=== PATIENT | male | born 1930 | race Caucasian/White ===

== ENCOUNTER 2018-03-19 12:57 | Inpatient (IN) ==
[2018-03-19 13:18] LABS: Basophils % 0.3 % (0.1-2.0); Eosinophils # 0.2 K/mm3 (0.0-0.4); Eosinophils % 3.5 % (0.1-12.0); Hematocrit 44.9 % (42.0-52.0); Hemoglobin 14.1 g/dL (14.1-18.0); Lymphocytes # 0.3 K/mm3 (0.7-4.5); Lymphocytes % 6.4 % (10-50); Mean Corpuscular HGB Conc 31.5 g/dL (31.8-35.4); Mean Corpuscular Hemoglobin 30.6 pg (27.0-31.2); Mean Corpuscular Volume 97.2 fl (80-94); Mean Platelet Volume 8.7 fl (7.4-10.4); Monocytes # 0.2 K/mm3 (0.1-1.0); Monocytes % 3.1 % (1.7-9.3); Neutrophils # 4.3 K/mm3 (1.8-7.8); Neutrophils % 86.8 % (37.0-80.0); Platelet Count 129 K/mm3 (142-424); Red Blood Count 4.62 M/mm3 (4.60-6.20); Red Cell Distribution Width 14.9 % (11.5-17.5); White Blood Count 4.9 K/mm3 (4.8-10.8)
[2018-03-19 13:24] LABS: INR 1.53 (0.9-1.1); Prothrombin Time 15.6 seconds (9.4-11.8)
[2018-03-19 13:34] LABS: Albumin Level 3.3 gm/dL (3.4-5.0); Albumin/Globulin Ratio 0.6 (1.1-1.8); Anion Gap 11.6 mEq/L (5-15); Bilirubin,Total 2.3 mg/dL (0.2-1.0); Calcium 9.1 mg/dL (8.5-10.1); Globulin 5.1 gm/dl (1.3-3.2); Potassium 3.6 mmoL/L (3.5-5.1); Total Protein,Serum 8.4 gm/dL (6.4-8.2)
[2018-03-19 13:52] LABS: Microscopic, Urine URINE MICROSCOPIC (MICROSCOPIC)
[2018-03-19 13:53] LABS: Eosinophils % 1 % (0-3); Lymphocytes % 3 % (10-50); Monocytes % 1 % (2-9); Neutrophils % 95 % (42-76); Total Cells Counted 100
[2018-03-19 13:54] LABS: RBC Morphology Normal
[2018-03-19 13:57] LABS: Appearance,Urine CLEAR (Clear); Bilirubin,Urine Negative (Negative); Blood, Urine TRACE-I (Negative); Color,Urine YELLOW (Yellow); Glucose,Urine (UA) Negative (Negative); Ketones,Urine Negative (Negative); Leukocyte Esterase,Urine Negative (Negative); Protein,Urine Negative (Negative); Specific Gravity, Urine 1.015 (1.005-1.030)
[2018-03-19 14:20] LABS: RBC,Urine Occasional #/hpf (0-3)
[2018-03-19 14:21] LABS: Bacteria,Urine Trace /lpf; Squamous Epithelial Cell,Urine Occasional #/hpf (0-5)
[2018-03-19 14:57] LABS: ABG Base Excess 2.7 mmol/L (-2.4-2.3); ABG Oxygen Saturation 97 % (90-100); ABG PCO2 49.8 mmhg (35.0-45.0); ABG PH 7.37 mmol/L (7.35-7.45); ABG PO2 97.9 mmhg (80-100); ABG TCO2 29.5 mmhg (23-27)
[2018-03-19 15:00] LABS: Allen's Test ACCEPTABLE
--- NOTE | 2018-03-19 16:27 | Emergency Department Note ---
ED Disposition Clinical Impression: Myalgia CHF (congestive heart failure) Qualifiers: Heart failure type: unspecified Heart failure chronicity: acute Qualified Code(s): I50.9 - Heart failure, unspecified Disposition: Admitted as Observation Condition on Discharge: Fair Instructions: Heart Failure Additional Instructions: DI for Myalgia Referrals: Provider,Referral, [Primary Care Provider] - - Critical Care Critical Care Time: Yes (45 min) Attestation: On 03/19/18, the high probability of a clinically significant, sudden or life threatening deterioration of the following system(s) required my full and direct attention, intervention and personal management. The time I documented below is in addition to time spent performing reported procedures but includes the following listed in this critical care notation. Vital system(s) involved:: Circulatory Failure, Respiratory Failure My critical care processes included: Assessment & monitoring of V/S, Initial and Re-exams, Data Review/Interpretation, Coordinating Care, Medication Orders and management, Documentation Medical Decision Making - Medical Records Medical records reviewed: Yes: I reviewed the patient's medical records. - [place] Inquiry Pt receiving controlled substance: No [place] was queried for this patient: No Vital Signs: 03/19/18 13:00 03/19/18 13:02 03/19/18 13:52 Temperature 98.7 F Temperature Source Oral Pulse Rate [Left Radial] 96 H 99 H Pulse Rate [Left] 92 H Respiratory Rate 26 H 18 Blood Pressure [Right Arm] 182/98 H 182/98 H 200/105 H Blood Pressure Mean [Right Arm] 126 126 136 Blood Pressure Source [Right Arm] Automatic Cuff Automatic Cuff Automatic Cuff Blood Pressure Position [Right Arm] Sitting Sitting Sitting 02 Sat by Pulse Oximetry 93 L 95 97 Oxygen Delivery Method Nasal Cannula Oxygen Flow Rate (LPM) 2 03/19/18 13:58 03/19/18 14:16 03/19/18 16:19 Temperature 97 F L Temperature Source Oral Pulse Rate [Left Radial] 96 H 98 H 95 H Pulse Rate [Left] Respiratory Rate 12 26 H 26 H Blood Pressure [Right Arm] 199/125 H 159/95 H 127/89 Blood Pressure Mean [Right Arm] 149 116 101 Blood Pressure Source [Right Arm] Automatic Cuff Automatic Cuff Blood Pressure Position [Right Arm] Sitting Sitting 02 Sat by Pulse Oximetry 96 94 L 94 L Oxygen Delivery Method Nasal Cannula Nasal Cannula Nasal Cannula Oxygen Flow Rate (LPM) 4 4 4 03/19/18 17:05 Temperature Temperature Source Pulse Rate [Left Radial] 81 Pulse Rate [Left] Respiratory Rate Blood Pressure [Right Arm] 139/97 H Blood Pressure Mean [Right Arm] 111 Blood Pressure Source [Right Arm] Automatic Cuff Blood Pressure Position [Right Arm] Sitting 02 Sat by Pulse Oximetry 97 Oxygen Delivery Method Oxygen Flow Rate (LPM) - Lab Data Lab results reviewed: Yes: I reviewed the patient's lab results. Lab Results 03/19/18 12:46: Urine Color Yellow, Urine Appearance Clear, Urine pH 7.0, Ur Specific [place] 1.015, Urine Protein Negative, Urine Glucose (UA) Negative, Urine Ketones Negative, Urine Blood Trace-i, Urine Nitrate Negative, Urine Bilirubin Negative, Urine Urobilinogen 2.0, Ur Leukocyte Esterase Negative, Urine RBC Occasional, Urine WBC None, Ur Squamous Epith Cells Occasional, Urine Bacteria Trace 03/19/18 13:06: WBC 4.9, RBC 4.62, Hgb 14.1, Hct 44.9, MCV 97.2 H, MCH 30.6, MCHC 31.5 L, RDW 14.9, Plt Count 129 L, MPV 8.7, Neut % (Auto) 86.8 H, Lymph % (Auto) 6.4 L, [place] % (Auto) 3.1, Eos % (Auto) 3.5, Baso % (Auto) 0.3, Neut # (Auto) 4.3, Lymph # (Auto) 0.3 L, [place] # (Auto) 0.2, Eos # (Auto) 0.2, Baso # (Auto) 0.0, Total Counted 100, Neutrophils % (Manual) 95 H, Lymphocytes % (Manual) 3 L, Monocytes % (Manual) 1 L, Eosinophils % (Manual) 1, Platelet Estimate Normal, RBC Morphology Normal 03/19/18 13:06: Sodium 144, Potassium 3.6, Chloride 105, Carbon Dioxide 31, Anion Gap 11.6, BUN 19 H, Creatinine 1.00, Estimated Creat Clear 57, Estimated GFR 71, Est GFR ( Amer) 86, Glucose 179 H, Calcium 9.1, Total Bilirubin 2.3 H, AST 170 H, ALT 98 H, Alkaline Phosphatase 168 H, Troponin I 0.03, Total Protein 8.4 H, Albumin 3.3 L, Globulin 5.1 H, Albumin/Globulin Ratio 0.6 L, Amylase 22 L 03/19/18 13:06: Lipase 91 03/19/18 13:06: PT 15.6 H, INR 1.53 H 03/19/18 13:06: B-Natriuretic Peptide 272 H 03/19/18 13:58: Lactate 2.8 H 03/19/18 14:25: Specimen Source L radial, O2 % 4 lpm, ABG pH 7.37, ABG pCO2 49.8 H, ABG pO2 97.9, ABG HCO3 28.0 H, ABG Total CO2 29.5 H, ABG O2 Saturation 97, ABG Base Excess 2.7 H, Freddy Test Acceptable Result diagrams: 03/19/18 13:06 03/19/18 13:06 Orders (Tests/Meds): ED MEDICATIONS Generic Name Dose Route Start Last Admin Trade Name Freq PRN Reason Stop Dose Admin Sodium Chloride 1,000 mls @ 100 mls/hr 03/19/18 14:30 03/19/18 16:12 Sod Chlor 0.9% 1000ml Bag IV 04/18/18 14:29 100 mls/hr .Q10H MARLEY Administration Levofloxacin/Dextrose 500 mg in 100 mls @ 100 mls/hr 03/19/18 16:00 03/19/18 16:13 Levaquin 500mg/100ml Premix IV 04/02/18 15:59 100 mls/hr Q24H MARLEY Administration Protocol Discontinued Medications Generic Name Dose Route Start Last Admin Trade Name Freq PRN Reason Stop Dose Admin Iopamidol 75 ml 03/19/18 16:47 03/19/18 16:48 [id number]; 75ml Vial IV 03/19/18 16:48 75 ml ONCE ONE Administration Protocol Sodium Chloride 10 ml 03/19/18 16:47 03/19/18 16:48 Rad-Saline Flush 10ml Syringe IV 03/19/18 16:48 10 ml ONCE ONE Administration ORDERS Category Date Time Status Urinalysis and Microscopic Stat Lab 03/19/18 12:46 Ordered Blood Culture Stat Micro 03/19/18 14:00 Ordered - CT Data CT Scan: Abdomen, Pelvis, Chest Time Received: 17:[address] Reviewed: Yes: I have reviewed the patient's CT results, I have viewed the radiologist's interpretation Findings Narrative: CHF with pleural effusion - Physician Consults Physician Consulted: Dr. Wylie Time: 17:58 Reason -: Admission, Pt condition Comment/Response: Admit Obs General Adult HPI - General Chief complaint: Shortness of Breath/Dyspnea Stated complaint: sob Time Seen by Provider: 03/19/18 13:45 Mode of Arrival: EMS Limitations: No Limitations Description of Symptoms (Recalled from ER Triage Doc. by RN): to ed per squad, reports pt was getting labs drawn from home health called due to shortness of breath, low o2 sat and cyanotic. o2 sats at scene 88% pt placed on 02 2 L up to 96%. pt c/o generalized abd pain +nausea, cpta IV oxygen - History of Present Illness HPI narrative: Poor historian Onset (ago): day(s) (today) Radiation: other (Unknown source of discomfort.Just moaning. Vomiting when he woke up this morning) Quality: dull Consistency: constant Relieving factors: none Exacerbating factors: none Associated symptoms: malaise, nausea/vomiting Treatments prior to arrival: none - Related Data Home Medications Medication Instructions Recorded Confirmed Alfuzosin HCl [Alfuzosin HCl ER] 10 mg PO DAILY 03/19/18 03/19/18 Carvedilol [Carvedilol 25mg Tab] 25 mg PO DAILY 03/19/18 03/19/18 Finasteride [Proscar 5mg Tablet] 5 mg PO DAILY 03/19/18 03/19/18 Furosemide [Lasix 40mg tab] 40 mg PO DAILY 03/19/18 03/19/18 Lisinopril [Lisinopril 20mg Tab] 20 mg PO DAILY 03/19/18 03/19/18 Omeprazole [Omeprazole 20mg Tab] 20 mg PO DAILY 03/19/18 03/19/18 Salsalate 750 mg PO BID 03/19/18 03/19/18 Warfarin Sodium [Coumadin 5mg 5 mg PO DAILY 03/19/18 03/19/18 tablet] Allergies Allergy/AdvReac Type Severity Reaction Status Date / Time No Known Allergies Allergy Verified 03/19/18 13:10 [facility] History I have reviewed the patient's past medical history: Yes Medical History: Reports:: Home Oxygen - Social History Alcohol Intake: never - Psychiatric History Expresses thoughts of harming self/others: None Suicide Plan Description: No Plan ROS Obtained: Yes All systems reviewed & no additional complaints - Constitutional Constitutional: Reports system reviewed and no additional complaints, except as docu - Cardiovascular Cardiovascular: Reports system reviewed and no additional complaints, except as docu, Denies chest pain - Respiratory Respiratory: No cough, No dyspnea - Gastrointestinal Gastrointestingal: Denies: diarrhea, nausea, vomiting - Genitourinary Male Genitourinary: Denies urinary frequency, Denies urinary hesitancy, Denies urinary urgency - Neurologic Neurologic: Reports system reviewed and no additional complaints, except as docu - Endocrine Endocrine: Reports system reviewed and no additional complaints, except as docu Physical Exam - General General appearance: alert, in distress (in mild to moderate distress) - Head Head exam: atraumatic, normocephalic, normal inspection - Eye Eye exam: Present: normal appearance, PERRL, EOMI - ENT ENT exam: Present: normal exam, normal oropharynx, mucous membranes moist, TM's normal bilaterally, normal external ear exam - Neck Neck exam: Present: normal inspection, full ROM, trachea midline. Absent: meningismus, lymphadenopathy - Chest Chest inspection: Present: normal inspection, symmetric chest wall rise. Absent: tenderness - Respiratory Respiratory exam: Present: normal lung sounds bilaterally. Absent: respiratory distress - Cardiovascular Cardiovascular exam: Present: regular rate, normal rhythm. Absent: JVD - Abdominal Exam Abdominal exam: Present: soft, tenderness (tender mildly), normal bowel sounds. Absent: distention, guarding, rebound, rigidity Abdominal tenderness: Present: mild - Neurological Exam Neurological exam: Present: alert, oriented X3 - Skin Skin exam: Present: warm, dry, intact, normal color
[2018-03-20 05:45] LABS: Basophils % 0.1 % (0.1-2.0); Eosinophils % 0.1 % (0.1-12.0); Hematocrit 37.2 % (42.0-52.0); Lymphocytes # 0.5 K/mm3 (0.7-4.5); Lymphocytes % 3.6 % (10-50); Mean Corpuscular HGB Conc 31.3 g/dL (31.8-35.4); Mean Corpuscular Hemoglobin 30.4 pg (27.0-31.2); Mean Corpuscular Volume 97.1 fl (80-94); Mean Platelet Volume 8.6 fl (7.4-10.4); Monocytes # 0.9 K/mm3 (0.1-1.0); Monocytes % 5.8 % (1.7-9.3); Neutrophils # 13.2 K/mm3 (1.8-7.8); Neutrophils % 90.4 % (37.0-80.0); Platelet Count 117 K/mm3 (142-424); Red Blood Count 3.83 M/mm3 (4.60-6.20); Red Cell Distribution Width 15.2 % (11.5-17.5); White Blood Count 14.6 K/mm3 (4.8-10.8)
[2018-03-20 05:52] LABS: Anion Gap 10.5 mEq/L (5-15); Calcium 8.9 mg/dL (8.5-10.1); Potassium 4.5 mmoL/L (3.5-5.1)
[2018-03-20 06:02] LABS: Hemoglobin 11.7 g/dL (14.1-18.0)
--- NOTE | 2018-03-20 08:42 | Pharmacy Consult Notes ---
[facility] VTE Monitoring - Patient Demographics Admission date: 03/19/18 Report Date: 03/20/18 Time: 08:41 Allergies/Adverse Reactions: Patient Allergies No Known Allergies Allergy (Verified 03/19/18 13:10) Height: 1.83 m Weight: 114.532 kg Patient Problems: Current Active Problems CHF (congestive heart failure) (Acute) Myalgia (Acute) - VTE Risk Labs: VTE Related Lab Results Hgb 11.7 g/dL (14.1-18.0) L D 03/20/18 04:30 Hct 37.2 % (42.0-52.0) L 03/20/18 04:30 Plt Count 117 K/mm3 (142-424) L 03/20/18 04:30 PT 15.6 seconds (9.4-11.8) H 03/19/18 13:06 INR 1.53 (0.9-1.1) H 03/19/18 13:06 BUN 23 mg/dL (7-18) H 03/20/18 04:30 Creatinine 1.21 mg/dL (0.70-1.30) D 03/20/18 04:30 Estimated Creat Clear 70 mL/min (50-200) 03/20/18 04:30 VTE Score: 4 VTE Risk Level: Low Risk - Prophylaxis VTE Prophylaxis Ordered?: Yes Types of VTE Prophylaxis: Pharmacological Pharmacologic Type: Warfarin - VTE Diagnosis Confirmed Treatment or plan recommended: Continue Current Treatment
--- NOTE | 2018-03-20 09:14 | History & Physical Report ---
*Admission Date: 03/19/18 <Kimberly Iglesias 03/20/18 09:23> *Chief complaint: Shortness of breath <Kimberly Iglesias 03/20/18 09:23> *History of present illness: Mr. Roblero is an 87-year-old male who is a patient with the [facility]. He is not a good historian and states he was eating yesterday when he became short of breath and vomited. He states his called the ambulance and he was brought to the emergency room. He is unsure exactly why he was hospitalized. He denies any pain or shortness of air at this time he states he thinks he might of had some diarrhea for the past few days. <Kimberly Iglesias 03/20/18 09:23> [facility] History Medical History: Reports:: Home Oxygen, Hyperlipidemia, Hypertension Denies:: Cancer, Diabetes Mellitus Type 1, Diabetes Mellitus Type 2, MRSA <Kimberly Iglesias 03/20/18 09:23> Amputation: No <Kimberly Iglesias 03/20/18 09:23> Fractures: No <Kimberly Iglesias 03/20/18 09:23> - *Social History Educational Level: Attended Grade School <Kimberly Iglesias 03/20/18 09:23> Smoking Status: Never smoker <Kimberly Iglesias 03/20/18 09:23> Alcohol Intake: never <Kimberly Iglesias 03/20/18 09:23> Occupational Status: retired <Kimberly Iglesias 03/20/18 09:23> Housing: house <Kimberly Iglesias 03/20/18 09:23> Household Members: spouse <Kimberly Iglesias 03/20/18 09:23> - Psychiatric History Expresses thoughts of harming self/others: None <Kimberly Iglesias 03/20/18 09:23> Suicide Plan Description: No Plan <Kimberly Iglesias 03/20/18 09:23> *Family Hx:: Hyperlipidemia, Hypertension <Kimberly Iglesias 03/20/18 09:23> Review of Systems - Constitutional Reports weakness <Kimberly Iglesias 03/20/18 09:23> - Eyes Denies blurry vision, Denies double vision <Kimberly Iglesias - 03/20/18 09:23> - ENT Denies nasal congestion, Denies sore throat <Kimberly Iglesias - 03/20/18 09:23> - *Cardiovascular Denies chest pain <Kimberly Iglesias - 03/20/18 09:23> - *Respiratory Denies cough, Denies shortness of breath <Kimberly Iglesias - 03/20/18 09:23> - *Gastrointestinal Reports loose stools, Reports nausea, Reports vomiting, Denies abdominal pain <Kimberly Iglesias 03/20/18 09:23> - *Genitourinary Denies difficulty urinating <Kimberly Iglesias 03/20/18 09:23> - *Musculoskeletal Denies joint pain <Kimberly Iglesias 03/20/18 09:23> - *Neurologic Reports weakness, Denies dizziness <Kimberly Iglesias 03/20/18 09:23> Meds Home Medications Medication Instructions Recorded Confirmed Type Alfuzosin HCl [Alfuzosin HCl ER] 10 mg PO DAILY 03/19/18 03/19/18 History Carvedilol [Carvedilol 25mg Tab] 12.5 mg PO BID 03/19/18 03/20/18 History Finasteride [Proscar 5mg Tablet] 5 mg PO DAILY 03/19/18 03/19/18 History Furosemide [Lasix 40mg tab] 40 mg PO DAILY 03/19/18 03/19/18 History Omeprazole [Omeprazole 20mg Tab] 20 mg PO DAILY 03/19/18 03/19/18 History Salsalate 750 mg PO BID 03/19/18 03/19/18 History Warfarin Sodium [Coumadin 5mg 5 mg PO DIRECTED 03/19/18 03/20/18 History tablet] Cholecalciferol (Vitamin D3) 1,000 unit PO DAILY 03/20/18 03/20/18 History [Vitamin D3 1,000 Unit Cap] Fluticasone Propionate [Flonase 1 spr NS DAILY 03/20/18 03/20/18 History 50mcg nasal spray 16gm] Lisinopril [Lisinopril 40mg Tablet] 40 mg PO DAILY 03/20/18 03/20/18 History <Vicky Wylie - 03/20/18 10:22> Allergies Allergy/AdvReac Type Severity Reaction Status Date / Time No Known Allergies Allergy Verified 03/19/18 13:10 <Sound,Vicky - 03/20/18 10:22> Exam Vital signs and Labs for Last 24 Hours: Temp Pulse Resp BP Pulse Ox 98.4 F 96 H 18 151/83 H 95 03/20/18 08:00 03/20/18 08:00 03/20/18 08:00 03/20/18 08:00 03/20/18 08:00 Laboratory Results - last 24 hr 03/19/18 12:46: Urine Color Yellow, Urine Appearance Clear, Urine pH 7.0, Ur Specific [place] 1.015, Urine Protein Negative, Urine Glucose (UA) Negative, Urine Ketones Negative, Urine Blood Trace-i, Urine Nitrate Negative, Urine Bilirubin Negative, Urine Urobilinogen 2.0, Ur Leukocyte Esterase Negative, Urine RBC Occasional, Urine WBC None, Ur Squamous Epith Cells Occasional, Urine Bacteria Trace 03/19/18 13:06: WBC 4.9, RBC 4.62, Hgb 14.1, Hct 44.9, MCV 97.2 H, MCH 30.6, MCHC 31.5 L, RDW 14.9, Plt Count 129 L, MPV 8.7, Neut % (Auto) 86.8 H, Lymph % (Auto) 6.4 L, [place] % (Auto) 3.1, Eos % (Auto) 3.5, Baso % (Auto) 0.3, Neut # (A uto) 4.3, Lymph # (Auto) 0.3 L, [place] # (Auto) 0.2, Eos # (Auto) 0.2, Baso # (Auto) 0.0, Total Counted 100, Neutrophils % (Manual) 95 H, Lymphocytes % (Manual) 3 L, Monocytes % (Manual) 1 L, Eosinophils % (Manual) 1, Platelet Estimate Normal, RBC Morphology Normal 03/19/18 13:06: Sodium 144, Potassium 3.6, Chloride 105, Carbon Dioxide 31, Anion Gap 11.6, BUN 19 H, Creatinine 1.00, Estimated Creat Clear 57, Estimated GFR 71, Est GFR ( Amer) 86, Glucose 179 H, Calcium 9.1, Total Bilirubin 2.3 H, AST 170 H, ALT 98 H, Alkaline Phosphatase 168 H, Troponin I 0.03, Total Protein 8.4 H, Albumin 3.3 L, Globulin 5.1 H, Albumin/Globulin Ratio 0.6 L, Amylase 22 L 03/19/18 13:06: Lipase 91 03/19/18 13:06: PT 15.6 H, INR 1.53 H 03/19/18 13:06: B-Natriuretic Peptide 272 H 03/19/18 13:58: Lactate 2.8 H 03/19/18 14:25: Specimen Source L radial, O2 % 4 lpm, ABG pH 7.37, ABG pCO2 49.8 H, ABG pO2 97.9, ABG HCO3 28.0 H, ABG Total CO2 29.5 H, ABG O2 Saturation 97, ABG Base Excess 2.7 H, Freddy Test Acceptable 03/19/18 19:04: Lactate 2.4 H 03/19/18 22:20: Troponin I 0.06 03/19/18 22:20: Lactate 2.0 03/20/18 04:30: Troponin I 0.05 03/20/18 04:30: WBC 14.6 H D, RBC 3.83 L, Hgb 11.7 L D, Hct 37.2 L, MCV 97.1 H, MCH 30.4, MCHC 31.3 L, RDW 15.2, Plt Count 117 L, MPV 8.6, Neut % (Auto) 90.4 H, Lymph % (Auto) 3.6 L, [place] % (Auto) 5.8, Eos % (Auto) 0.1, Baso % (Auto) 0.1, Neut # (Auto) 13.2 H, Lymph # (Auto) 0.5 L, [place] # (Auto) 0.9, Eos # (Auto) 0.0, Baso # (Auto) 0.0 03/20/18 04:30: Sodium 143, Potassium 4.5 D, Chloride 106, Carbon Dioxide 31, Anion Gap 10.5, BUN 23 H, Creatinine 1.21 D, Estimated Creat Clear 70, Estimated GFR 57 L, Est GFR ( Amer) 69, Glucose 110 H D, Calcium 8.9 <Sound,Vicky - 03/20/18 10:22> Temp Pulse Resp BP Pulse Ox 98.4 F 96 H 18 151/83 H 95 03/20/18 08:00 03/20/18 08:00 03/20/18 08:00 03/20/18 08:00 03/20/18 08:00 Laboratory Results - last 24 hr 03/19/18 12:46: Urine Color Yellow, Urine Appearance Clear, Urine pH 7.0, Ur Specific [place] 1.015, Urine Protein Negative, Urine Glucose (UA) Negative, Urine Ketones Negative, Urine Blood Trace-i, Urine Nitrate Negative, Urine Bilirubin Negative, Urine Urobilinogen 2.0, Ur Leukocyte Esterase Negative, Urine RBC Occasional, Urine WBC None, Ur Squamous Epith Cells Occasional, Urine Bacteria Trace 03/19/18 13:06: WBC 4.9, RBC 4.62, Hgb 14.1, Hct 44.9, MCV 97.2 H, MCH 30.6, MCHC 31.5 L, RDW 14.9, Plt Count 129 L, MPV 8.7, Neut % (Auto) 86.8 H, Lymph % (Auto) 6.4 L, [place] % (Auto) 3.1, Eos % (Auto) 3.5, Baso % (Auto) 0.3, Neut # (Auto) 4.3, Lymph # (Auto) 0.3 L, [place] # (Auto) 0.2, Eos # (Auto) 0.2, Baso # (Auto) 0.0, Total Counted 100, Neutrophils % (Manual) 95 H, Lymphocytes % (Manual) 3 L, Monocytes % (Manual) 1 L, Eosinophils % (Manual) 1, Platelet Estimate Normal, RBC Morphology Normal 03/19/18 13:06: Sodium 144, Potassium 3.6, Chloride 105, Carbon Dioxide 31, Anion Gap 11.6, BUN 19 H, Creatinine 1.00, Estimated Creat Clear 57, Estimated GFR 71, Est GFR ( Amer) 86, Glucose 179 H, Calcium 9.1, Total Bilirubin 2.3 H, AST 170 H, ALT 98 H, Alkaline Phosphatase 168 H, Troponin I 0.03, Total Protein 8.4 H, Albumin 3.3 L, Globulin 5.1 H, Albumin/Globulin Ratio 0.6 L, Amylase 22 L 03/19/18 13:06: Lipase 91 03/19/18 13:06: PT 15.6 H, INR 1.53 H 03/19/18 13:06: B-Natriuretic Peptide 272 H 03/19/18 13:58: Lactate 2.8 H 03/19/18 14:25: Specimen Source L radial, O2 % 4 lpm, ABG pH 7.37, ABG pCO2 49.8 H, ABG pO2 97.9, ABG HCO3 28.0 H, ABG Total CO2 29.5 H, ABG O2 Saturation 97, ABG Base Excess 2.7 H, Freddy Test Acceptable 03/19/18 19:04: Lactate 2.4 H 03/19/18 22:20: Troponin I 0.06 03/19/18 22:20: Lactate 2.0 03/20/18 04:30: Troponin I 0.05 03/20/18 04:30: WBC 14.6 H D, RBC 3.83 L, Hgb 11.7 L D, Hct 37.2 L, MCV 97.1 H, MCH 30.4, MCHC 31.3 L, RDW 15.2, Plt Count 117 L, MPV 8.6, Neut % (Auto) 90.4 H, Lymph % (Auto) 3.6 L, [place] % (Auto) 5.8, Eos % (Auto) 0.1, Baso % (Auto) 0.1, Neut # (Auto) 13.2 H, Lymph # (Auto) 0.5 L, [place] # (Auto) 0.9, Eos # (Auto) 0.0, Baso # (Auto) 0.0 03/20/18 04:30: Sodium 143, Potassium 4.5 D, Chloride 106, Carbon Dioxide 31, Anion Gap 10.5, BUN 23 H, Creatinine 1.21 D, Estimated Creat Clear 70, Estimated GFR 57 L, Est GFR ( Amer) 69, Glucose 110 H D, Calcium 8.9 <Kimberly Iglesias - 03/20/18 09:23> I & O for Last 24 hours: Intake & Output 03/17/18 03/18/18 03/19/18 03/20/18 11:59 11:59 11:59 11:59 Intake Total 551 / 551 Output Total 1500 / 1500 Balance -949 / -949 Weight 252 lb 8 oz <Vicky Wylie - 03/20/18 10:22> Intake & Output 03/17/18 03/18/18 03/19/18 03/20/18 11:59 11:59 11:59 11:59 Intake Total 551 / 551 Output Total 1500 / 1500 Balance -949 / -949 Weight 252 [facility] 8 [facility] 09[facility]23> - Constitutional no acute distress [facility] 09:23> - *Routine HEENT Exam Head: Present: normocephalic <[facility] 03/20/18 10:22> Present: normocephalic <[facility] 03/20/18 09:23> Eye: Present: EOMI, PERRL <[facility] 03/20/18 10:22> Present: EOMI, PERRL <[facility] 03/20/18 09:23> ENT: Present: mucous membranes dry [facility] 03/20/18 10:22> Present: mucous membranes dry <[facility] 03/20/18 09:23> - *Routine Neck Exam Present: supple <[facility] 03/20/18 10:22> Present: supple. Absent: lymphadenopathy <[facility] 03/20/18 09:23> - *Routine Respiratory Exam Present: decreased breath sounds, diminished air movement. Absent: accessory muscle use <[facility] 03/20/18 10:22> Present: diminished air movement <[facility] 03/20/18 09:23> - *Routine Cardiovascular Exam Present: RRR <[facility] 03/20/18 10:22> Present: RRR, murmur <[facility] 03/20/18 09:23> - *Routine Abdominal Exam Present: soft, normoactive bowel sounds <[facility] 03/20/18 10:22> Present: soft, normoactive bowel sounds. Absent: tenderness <[facility] 03/20/18 09:23> - *Routine Extremities Exam Present: edema <[facility] 03/20/18 10:22> Present: edema (2+ bilateral LE's) <[facility] 03/20/18 09:23> - *Routine Skin Exam Present: intact, dry <[facility] 03/20/18 10:22> Present: warm. Absent: rash <Kimberly Iglesias 03/20/18 09:23> - *Routine Neurological Exam Present: alert. Absent: oriented X3 <Vicky Wylie 03/20/18 10:22> Awake, patient is not oriented and is a poor historian <Kimberly Iglesias 03/20/18 09:23> - Routine Psychiatric Exam Present: normal affect <Dejan,Vicky 03/20/18 10:22> H&P: Result - Impressions CXR - CHF with pulmonary edema Abd CT 1. Slight increased density of the gallbladder which could be due to some stones or sludge with questionable gallbladder wall thickening. Ultrasound may be of further value. 2. Small amount fluid in the left paracolic gutter and left lower quadrant nonspecific. 3. Colonic diverticulosis Chest CT 1. Small bilateral effusions with cardiomegaly and interstitial and alveolar edema consistent with CHF. Possible infiltrate in the right lung base. 2. Mediastinal adenopathy Repeat CXR Improvement in CHF with some residual airspace disease in the right lower lobe <Kimberly Iglesias 03/20/18 09:23> Assessment and Plan (1) CHF (congestive heart failure) Current visit: Yes Status: Acute Qualifiers: Heart failure type: unspecified Heart failure chronicity: acute Qualified Code(s): I50.9 - Heart failure, unspecified Category: Medical Code(s): I50.9 - Heart failure, unspecified (2) Leukocytosis Current visit: Yes Status: Acute Category: Medical Code(s): D72.829 - Elevated white blood cell count, unspecified (3) Subtherapeutic international normalized ratio (INR) Current visit: Yes Status: Acute Category: Medical Code(s): R79.1 - Abnormal coagulation profile (4) Elevated lactic acid level Current visit: Yes Status: Acute Category: Medical Code(s): R79.89 - Other specified abnormal findings of blood chemistry (5) Vomiting and diarrhea Current visit: Yes Status: Acute Category: Medical Code(s): R11.10 - Vomiting, unspecified; R19.7 - Diarrhea, unspecified (6) Abnormal abdominal CT scan Current visit: Yes Status: Acute Category: Medical Code(s): R93.5 - Abnormal findings on diagnostic imaging of other abdominal regions, including retroperitoneum <Rufus Iglesiasa - 03/20/18 09:11> (1) Sepsis Current visit: Yes Status: Acute Category: Medical Code(s): A41.9 - Sepsis, unspecified organism 2/2 Right lower lobe pneumonia with elevated LA levels and WBC count. (2) Right lower lobe pneumonia Current visit: Yes Status: Acute Qualifiers: Pneumonia type: due to unspecified organism Qualified Code(s): J18.1 - Lobar pneumonia, unspecified organism Category: Medical Code(s): J18.1 - Lobar pneumonia, unspecified organism Will start on doxycycline and neb tx (3) CHF (congestive heart failure) Current visit: Yes Status: Acute Qualifiers: Heart failure type: unspecified Heart failure chronicity: acute Qualified Code(s): I50.9 - Heart failure, unspecified Category: Medical Code(s): I50.9 - Heart failure, unspecified (4) Subtherapeutic international normalized ratio (INR) Current visit: Yes Status: Acute Category: Medical Code(s): R79.1 - Abnormal coagulation profile (5) Vomiting and diarrhea Current visit: Yes Status: Acute Category: Medical Code(s): R11.10 - Vomiting, unspecified; R19.7 - Diarrhea, unspecified (6) Abnormal abdominal CT scan Current visit: Yes Status: Acute Category: Medical Code(s): R93.5 - Abnormal findings on diagnostic imaging of other abdominal regions, including retroperitoneum will get US of RUQ (7) Acute respiratory failure with hypoxia Current visit: Yes Status: Acute Category: Medical Code(s): J96.01 - Acute respiratory failure with hypoxia on supplemental oxygen <Vicky Wylie - 03/20/18 10:22> - Assessment and plan all Dx Assessment and Plan for all problems:: Will get ABG, PT/INR, RUQ US, Blood Cx. Start on doxycycline. <Vicky Wylie - 03/20/18 10:22> Patient has diuresed and CHF has improved on chest x-ray. We will try to obtain medical records from the [place] as patient is a poor historian. Will get a right upper quadrant ultrasound today. <Kimberly Iglesias - 03/20/18 09:23>
[2018-03-20 12:38] LABS: Lymphocytes % 2 % (10-50); Monocytes % 4 % (2-9); Neutrophils % 89 % (42-76); Total Cells Counted 100
[2018-03-21 06:33] LABS: ABG Base Excess 5.3 mmol/L (-2.4-2.3); ABG Oxygen Saturation 98 % (90-100); ABG PH 7.41 mmol/L (7.35-7.45); ABG PO2 106.8 mmhg (80-100); ABG TCO2 31.5 mmhg (23-27)
[2018-03-21 06:56] LABS: Allen's Test Acceptable; Oxygen 28% %
[2018-03-21 07:22] LABS: Basophils % 0.2 % (0.1-2.0); Eosinophils # 0.1 K/mm3 (0.0-0.4); Eosinophils % 1.1 % (0.1-12.0); Hematocrit 33.6 % (42.0-52.0); Hemoglobin 11.1 g/dL (14.1-18.0); Lymphocytes # 0.8 K/mm3 (0.7-4.5); Lymphocytes % 8.6 % (10-50); Mean Corpuscular HGB Conc 32.9 g/dL (31.8-35.4); Mean Corpuscular Volume 97.1 fl (80-94); Mean Platelet Volume 9.4 fl (7.4-10.4); Monocytes # 0.6 K/mm3 (0.1-1.0); Monocytes % 6.3 % (1.7-9.3); Neutrophils # 7.4 K/mm3 (1.8-7.8); Neutrophils % 83.8 % (37.0-80.0); Platelet Count 91 K/mm3 (142-424); Red Blood Count 3.45 M/mm3 (4.60-6.20); Red Cell Distribution Width 15.2 % (11.5-17.5); White Blood Count 8.9 K/mm3 (4.8-10.8)
[2018-03-21 07:28] LABS: INR 1.91 (0.9-1.1); Prothrombin Time 19.3 seconds (9.4-11.8)
--- NOTE | 2018-03-21 09:13 | Progress Note ---
<Kimberly Iglesias - Last Filed: 03/21/18 09:10> Internal Medicine - PN: Subj *Date: 03/21/18 *Time: 09:10 Interval history: Patient states he is feeling well today. He denies any pain. He is pleasantly confused. He is tolerating his diet. Exam Vital signs and Labs for Last 24 Hours: Temp Pulse Resp BP Pulse Ox 97.9 F 66 22 142/71 H 97 03/21/18 08:00 03/21/18 08:00 03/21/18 04:00 03/21/18 08:00 03/21/18 08:00 Laboratory Results - last 24 hr 03/20/18 04:30: Total Counted 100, Neutrophils % (Manual) 89 H, Band Neutrophils % 3.0, Lymphocytes % (Manual) 2 L, Atypical Lymphs % 2.0, Monocytes % (Manual) 4, Platelet Estimate Slight decrease, RBC Morphology Not Reportable 03/21/18 06:00: Specimen Source Right radial, O2 % 28%, ABG pH 7.41, ABG pCO2 49.0 H, ABG pO2 106.8 H, ABG HCO3 30.0 H, ABG Total CO2 31.5 H, ABG O2 Saturation 98, ABG Base Excess 5.3 H, Freddy Test Acceptable 03/21/18 06:30: PT 19.3 H, INR 1.91 H 03/21/18 06:30: WBC 8.9 D, RBC 3.45 L, Hgb 11.1 L, Hct 33.6 L, MCV 97.1 H, MCH 32.0 H, MCHC 32.9, RDW 15.2, Plt Count 91 L, MPV 9.4, Neut % (Auto) 83.8 H, Lymph % (Auto) 8.6 L, [place] % (Auto) 6.3, Eos % (Auto) 1.1, Baso % (Auto) 0.2, Neut # (Auto) 7.4, Lymph # (Auto) 0.8, [place] # (Auto) 0.6, Eos # (Auto) 0.1, Baso # (Auto) 0.0 I & O for Last 24 hours: Intake & Output 03/18/18 03/19/18 03/20/18 03/21/18 11:59 11:59 11:59 11:59 Intake Total 551 / 551 1881 / 1881 Output Total 1500 / 1500 1000 / 1000 Balance -949 / -949 881 / 881 Weight 252 lb 8 oz 155 lb 4 oz Microbiology Reports for the Last 24 Hours: Microbiology 03/19/18 14:00 Blood Blood Culture - Preliminary - Constitutional no acute distress - *Routine Respiratory Exam Present: crackles (faint bibasilar), diminished air movement - *Routine Cardiovascular Exam Present: RRR - *Routine Abdominal Exam Present: soft, normoactive bowel sounds. Absent: tenderness - *Routine Extremities Exam Present: edema (bilaterl LE edema). Absent: cyanosis, clubbing Assessment and Plan (1) Sepsis Current visit: Yes Status: Acute Category: Medical Code(s): A41.9 - Sepsis, unspecified organism (2) Right lower lobe pneumonia Current visit: Yes Status: Acute Qualifiers: Pneumonia type: due to unspecified organism Qualified Code(s): J18.1 - Lobar pneumonia, unspecified organism Category: Medical Code(s): J18.1 - Lobar pneumonia, unspecified organism (3) CHF (congestive heart failure) Current visit: Yes Status: Acute Qualifiers: Heart failure type: unspecified Heart failure chronicity: acute Qualified Code(s): I50.9 - Heart failure, unspecified Category: Medical Code(s): I50.9 - Heart failure, unspecified (4) Subtherapeutic international normalized ratio (INR) Current visit: Yes Status: Acute Category: Medical Code(s): R79.1 - Abnormal coagulation profile (5) Vomiting and diarrhea Current visit: Yes Status: Acute Category: Medical Code(s): R11.10 - Vomiting, unspecified; R19.7 - Diarrhea, unspecified (6) Abnormal abdominal CT scan Current visit: Yes Status: Acute Category: Medical Code(s): R93.5 - Abnormal findings on diagnostic imaging of other abdominal regions, including retroperitoneum (7) Acute respiratory failure with hypoxia Current visit: Yes Status: Acute Category: Medical Code(s): J96.01 - Acute respiratory failure with hypoxia (8) Positive blood culture Current visit: Yes Status: Acute Category: Medical Code(s): R78.81 - Bacteremia - Assessment and plan all Dx Assessment and Plan for all problems:: Lactic acid is now normal. Patient's white blood cell count has improved. He was started on Zosyn and Levaquin d/t his positive blood cultures. <Vicky Wylie - Last Filed: 03/21/18 10:53> Exam Vital signs and Labs for Last 24 Hours: Temp Pulse Resp BP Pulse Ox 97.9 F 66 22 142/71 H 97 03/21/18 08:00 03/21/18 08:00 03/21/18 04:00 03/21/18 08:00 03/21/18 09:39 Laboratory Results - last 24 hr 03/20/18 04:30: Total Counted 100, Neutrophils % (Manual) 89 H, Band Neutrophils % 3.0, Lymphocytes % (Manual) 2 L, Atypical Lymphs % 2.0, Monocytes % (Manual) 4, Platelet Estimate Slight decrease, RBC Morphology Not Reportable 03/21/18 06:00: Specimen Source Right radial, O2 % 28%, ABG pH 7.41, ABG pCO2 49.0 H, ABG pO2 106.8 H, ABG HCO3 30.0 H, ABG Total CO2 31.5 H, ABG O2 Satur ation 98, ABG Base Excess 5.3 H, Freddy Test Acceptable 03/21/18 06:30: PT 19.3 H, INR 1.91 H 03/21/18 06:30: WBC 8.9 D, RBC 3.45 L, Hgb 11.1 L, Hct 33.6 L, MCV 97.1 H, MCH 32.0 H, MCHC 32.9, RDW 15.2, Plt Count 91 L, MPV 9.4, Neut % (Auto) 83.8 H, Lymph % (Auto) 8.6 L, [place] % (Auto) 6.3, Eos % (Auto) 1.1, Baso % (Auto) 0.2, Neut # (Auto) 7.4, Lymph # (Auto) 0.8, [place] # (Auto) 0.6, Eos # (Auto) 0.1, Baso # (Auto) 0.0 I & O for Last 24 hours: Intake & Output 03/18/18 03/19/18 03/20/18 03/21/18 11:59 11:59 11:59 11:59 Intake Total 551 / 551 1881 / 1881 Output Total 1500 / 1500 1000 / 1000 Balance -949 / -949 881 / 881 Weight 252 lb 8 oz 155 lb 4 oz Microbiology Reports for the Last 24 Hours: Microbiology 03/19/18 14:00 Blood Blood Culture - Preliminary Gram Negative Rods Assessment and Plan (1) Sepsis Current visit: Yes Status: Acute Category: Medical Code(s): A41.9 - Sepsis, unspecified organism (2) Right lower lobe pneumonia Current visit: Yes Status: Acute Qualifiers: Pneumonia type: due to unspecified organism Qualified Code(s): J18.1 - Lobar pneumonia, unspecified organism Category: Medical Code(s): J18.1 - Lobar pneumonia, unspecified organism (3) CHF (congestive heart failure) Current visit: Yes Status: Acute Qualifiers: Heart failure type: unspecified Heart failure chronicity: acute Qualified Code(s): I50.9 - Heart failure, unspecified Category: Medical Code(s): I50.9 - Heart failure, unspecified (4) Subtherapeutic international normalized ratio (INR) Current visit: Yes Status: Acute Category: Medical Code(s): R79.1 - Abnormal coagulation profile (5) Vomiting and diarrhea Current visit: Yes Status: Acute Category: Medical Code(s): R11.10 - Vomiting, unspecified; R19.7 - Diarrhea, unspecified (6) Abnormal abdominal CT scan Current visit: Yes Status: Acute Category: Medical Code(s): R93.5 - Abnormal findings on diagnostic imaging of other abdominal regions, including retroperitoneum (7) Acute respiratory failure with hypoxia Current visit: Yes Status: Acute Category: Medical Code(s): J96.01 - Acute respiratory failure with hypoxia (8) Positive blood culture Current visit: Yes Status: Acute Category: Medical Code(s): R78.81 - Bacteremia - Assessment and plan all Dx Assessment and Plan for all problems:: We will continue Zosyn and Levaquin for now. Once sensitivities back, will switch to something p.o. we will try to wean off oxygen today
[2018-03-22 07:52] LABS: Basophils % 0.2 % (0.1-2.0); Eosinophils # 0.3 K/mm3 (0.0-0.4); Hematocrit 35.5 % (42.0-52.0); Hemoglobin 11.2 g/dL (14.1-18.0); Lymphocytes # 0.8 K/mm3 (0.7-4.5); Lymphocytes % 11.6 % (10-50); Mean Corpuscular HGB Conc 31.5 g/dL (31.8-35.4); Mean Corpuscular Hemoglobin 30.6 pg (27.0-31.2); Mean Corpuscular Volume 97.1 fl (80-94); Mean Platelet Volume 9.3 fl (7.4-10.4); Monocytes # 0.4 K/mm3 (0.1-1.0); Monocytes % 5.9 % (1.7-9.3); Neutrophils # 5.1 K/mm3 (1.8-7.8); Neutrophils % 77.4 % (37.0-80.0); Platelet Count 86 K/mm3 (142-424); Red Blood Count 3.65 M/mm3 (4.60-6.20); Red Cell Distribution Width 15.1 % (11.5-17.5); White Blood Count 6.6 K/mm3 (4.8-10.8)
--- NOTE | 2018-03-22 10:26 | Progress Note ---
Internal Medicine - PN: Subj *Date: 03/22/18 *Time: 10:15 Interval history: Patient doing well and is breathing on room air. Exam Vital signs and Labs for Last 24 Hours: Temp Pulse Resp BP Pulse Ox 97.7 F 75 20 160/85 H 91 L 03/22/18 07:58 03/22/18 07:58 03/22/18 07:58 03/22/18 07:58 03/22/18 09:07 Laboratory Results - last 24 hr 03/22/18 07:00: WBC 6.6 D, RBC 3.65 L, Hgb 11.2 L, Hct 35.5 L, MCV 97.1 H, MCH 30.6, MCHC 31.5 L, RDW 15.1, Plt Count 86 L, MPV 9.3, Neut % (Auto) 77.4, Lymph % (Auto) 11.6, [place] % (Auto) 5.9, Eos % (Auto) 5.0, Baso % (Auto) 0.2, Neut # (Auto) 5.1, Lymph # (Auto) 0.8, [place] # (Auto) 0.4, Eos # (Auto) 0.3, Baso # (Auto) 0.0 I & O for Last 24 hours: Intake & Output 03/19/18 03/20/18 03/21/18 03/22/18 11:59 11:59 11:59 11:59 Intake Total 551 / 551 2031 / 2031 3018 / 3018 Output Total 1500 / 1500 1000 / 1000 1800 / 1800 Balance -949 / -949 1031 / 1031 1218 / 1218 Weight 252 lb 8 oz 155 lb 4 oz 256 lb 8 oz Microbiology Reports for the Last 24 Hours: Microbiology 03/19/18 14:00 Blood Blood Culture - Final Escherichia coli 03/19/18 14:00 Blood Blood Culture - Preliminary - *Routine HEENT Exam Head: Present: normocephalic Eye: Present: EOMI ENT: Present: mucous membranes moist - *Routine Neck Exam Present: supple - *Routine Respiratory Exam Present: CTA bilaterally - *Routine Cardiovascular Exam Present: RRR - *Routine Abdominal Exam Present: soft, normoactive bowel sounds. Absent: tenderness - *Routine Extremities Exam Absent: edema - *Routine Skin Exam Present: intact - *Routine Neurological Exam Present: alert, oriented X3 - Routine Psychiatric Exam Present: normal affect Assessment and Plan (1) Sepsis Current visit: Yes Status: Acute Category: Medical Code(s): A41.9 - Sepsis, unspecified organism Sepsis secondary to E. coli resistant to Levaquin but sensitive to Zosyn. (2) Right lower lobe pneumonia Current visit: Yes Status: Acute Qualifiers: Pneumonia type: due to unspecified organism Qualified Code(s): J18.1 - Lobar pneumonia, unspecified organism Category: Medical Code(s): J18.1 - Lobar pneumonia, unspecified organism (3) CHF (congestive heart failure) Current visit: Yes Status: Acute Qualifiers: Heart failure type: unspecified Heart failure chronicity: acute Qualified Code(s): I50.9 - Heart failure, unspecified Category: Medical Code(s): I50.9 - Heart failure, unspecified (4) Subtherapeutic international normalized ratio (INR) Current visit: Yes Status: Acute Category: Medical Code(s): R79.1 - Abnormal coagulation profile (5) Vomiting and diarrhea Current visit: Yes Status: Acute Category: Medical Code(s): R11.10 - Vomiting, unspecified; R19.7 - Diarrhea, unspecified (6) Abnormal abdominal CT scan Current visit: Yes Status: Acute Category: Medical Code(s): R93.5 - Abnormal findings on diagnostic imaging of other abdominal regions, including retroperitoneum (7) Acute respiratory failure with hypoxia Current visit: Yes Status: Acute Category: Medical Code(s): J96.01 - Acute respiratory failure with hypoxia (8) Positive blood culture Current visit: Yes Status: Acute Category: Medical Code(s): R78.81 - Bacteremia - Assessment and plan all Dx Assessment and Plan for all problems:: Will place PICC line as he will need outpatient antibiotics,zosyn for a total of 14 days
[2018-03-23 07:17] LABS: Basophils # 0.1 K/mm3 (0-0.2); Basophils % 0.8 % (0.1-2.0); Eosinophils # 0.5 K/mm3 (0.0-0.4); Eosinophils % 8.6 % (0.1-12.0); Hematocrit 38.7 % (42.0-52.0); Hemoglobin 11.8 g/dL (14.1-18.0); Lymphocytes # 0.7 K/mm3 (0.7-4.5); Lymphocytes % 13.1 % (10-50); Mean Corpuscular HGB Conc 30.6 g/dL (31.8-35.4); Mean Corpuscular Volume 97.9 fl (80-94); Mean Platelet Volume 8.9 fl (7.4-10.4); Monocytes # 0.5 K/mm3 (0.1-1.0); Monocytes % 8.3 % (1.7-9.3); Neutrophils # 3.8 K/mm3 (1.8-7.8); Neutrophils % 69.1 % (37.0-80.0); Platelet Count 109 K/mm3 (142-424); Red Blood Count 3.95 M/mm3 (4.60-6.20); White Blood Count 5.6 K/mm3 (4.8-10.8)
--- NOTE | 2018-03-23 09:16 | Progress Note ---
<Sarah Epps - Last Filed: 03/23/18 09:13> Internal Medicine - PN: Subj *Date: 03/23/18 *Time: 09:13 Interval history: Patient states he is doing fine this morning. He thinks he is at home. He is eating without difficulty. He denies chest pain and shortness of breath. Does not know if he has been out of bed or not. Exam Vital signs and Labs for Last 24 Hours: Temp Pulse Resp BP Pulse Ox 97.8 F 64 18 161/80 H 93 L 03/23/18 04:00 03/23/18 04:00 03/23/18 04:00 03/23/18 04:00 03/23/18 04:00 Laboratory Results - last 24 hr 03/23/18 06:47: WBC 5.6, RBC 3.95 L, Hgb 11.8 L, Hct 38.7 L, MCV 97.9 H, MCH 30.0, MCHC 30.6 L, RDW 15.0, Plt Count 109 L D, MPV 8.9, Neut % (Auto) 69.1, Lymph % (Auto) 13.1, [place] % (Auto) 8.3, Eos % (Auto) 8.6, Baso % (Auto) 0.8, Neut # (Auto) 3.8, Lymph # (Auto) 0.7, [place] # (Auto) 0.5, Eos # (Auto) 0.5 H, Baso # (Auto) 0.1 I & O for Last 24 hours: Intake & Output 03/20/18 03/21/18 03/22/18 03/23/18 11:59 11:59 11:59 11:59 Intake Total 551 / 551 2030 / 2031 3378 / 3378 1678 / 1678 Output Total 1500 / 1500 1000 / 1000 3000 / 3000 Balance -949 / -949 1031 / 1031 378 / 378 1678 / 1678 Weight 252 lb 8 oz 155 lb 4 oz 256 lb 8 oz 259 lb 2 oz Microbiology Reports for the Last 24 Hours: Microbiology 03/19/18 14:00 Blood Blood Culture - Preliminary Escherichia coli Gram Negative Rods 03/19/18 14:00 Blood Blood Culture - Preliminary Escherichia coli - Constitutional no acute distress Comments: Appears comfortable - *Routine Respiratory Exam Present: CTA bilaterally (Anteriorly and posteriorly) - *Routine Cardiovascular Exam Present: RRR - *Routine Abdominal Exam Present: soft, normoactive bowel sounds. Absent: tenderness Comments: Large - *Routine Extremities Exam Present: edema (Bilateral pitting edema) - *Routine Neurological Exam Present: alert (Pleasantly disoriented) Assessment and Plan (1) Sepsis Current visit: Yes Status: Acute Category: Medical Code(s): A41.9 - Sepsis, unspecified organism (2) Right lower lobe pneumonia Current visit: Yes Status: Acute Qualifiers: Pneumonia type: due to unspecified organism Qualified Code(s): J18.1 - Lobar pneumonia, unspecified organism Category: Medical Code(s): J18.1 - Lobar pneumonia, unspecified organism (3) CHF (congestive heart failure) Current visit: Yes Status: Acute Qualifiers: Heart failure type: unspecified Heart failure chronicity: acute Qualified Code(s): I50.9 - Heart failure, unspecified Category: Medical Code(s): I50.9 - Heart failure, unspecified (4) Subtherapeutic international normalized ratio (INR) Current visit: Yes Status: Acute Category: Medical Code(s): R79.1 - Abnormal coagulation profile (5) Vomiting and diarrhea Current visit: Yes Status: Acute Category: Medical Code(s): R11.10 - Vomiting, unspecified; R19.7 - Diarrhea, unspecified (6) Abnormal abdominal CT scan Current visit: Yes Status: Acute Category: Medical Code(s): R93.5 - Abnormal findings on diagnostic imaging of other abdominal regions, including retroperitoneum (7) Acute respiratory failure with hypoxia Current visit: Yes Status: Acute Category: Medical Code(s): J96.01 - Acute respiratory failure with hypoxia (8) Positive blood culture Current visit: Yes Status: Acute Category: Medical Code(s): R78.81 - Bacteremia - Assessment and plan all Dx Assessment and Plan for all problems:: Patient will be discharged home today. He will continue with IV antibiotics at home through PICC line. <Vicky Wylie - Last Filed: 03/23/18 10:37> Exam Vital signs and Labs for Last 24 Hours: Temp Pulse Resp BP Pulse Ox 97.6 F 63 20 160/88 H 92 L 03/23/18 08:00 03/23/18 08:00 03/23/18 08:00 03/23/18 08:00 03/23/18 08:00 Laboratory Results - last 24 hr 03/23/18 06:47: WBC 5.6, RBC 3.95 L, Hgb 11.8 L, Hct 38.7 L, MCV 97.9 H, MCH 30.0, MCHC 30.6 L, RDW 15.0, Plt Count 109 L D, MPV 8.9, Neut % (Auto) 69.1, Lymph % (Auto) 13.1, [place] % (Auto) 8.3, Eos % (Auto) 8.6, Baso % (Auto) 0.8, Neut # (Auto) 3.8, Lymph # (Auto) 0.7, [place] # (Auto) 0.5, Eos # (Auto) 0.5 H, Baso # (Auto) 0.1 I & O for Last 24 hours: Intake & Output 03/20/18 03/21/18 03/22/18 03/23/18 11:59 11:59 11:59 11:59 Intake Total 551 / 551 2031 / 2031 3378 / 3378 1678 / 1678 Output Total 1500 / 1500 1000 / 1000 3000 / 3000 Balance -949 / -949 1031 / 1031 378 / 378 1678 / 1678 Weight 252 lb 8 oz 155 lb 4 oz 256 lb 8 oz 259 lb 2 oz Microbiology Reports for the Last 24 Hours: Microbiology 03/19/18 14:00 Blood Blood Culture - Preliminary Escherichia coli Gram Negative Rods 03/19/18 14:00 Blood Blood Culture - Preliminary Escherichia coli Assessment and Plan (1) Sepsis Current visit: Yes Status: Acute Category: Medical Code(s): A41.9 - Sepsis, unspecified organism (2) Right lower lobe pneumonia Current visit: Yes Status: Acute Qualifiers: Pneumonia type: due to unspecified organism Qualified Code(s): J18.1 - Lobar pneumonia, unspecified organism Category: Medical Code(s): J18.1 - Lobar pneumonia, unspecified organism (3) CHF (congestive heart failure) Current visit: Yes Status: Acute Qualifiers: Heart failure type: unspecified Heart failure chronicity: acute Qualified Code(s): I50.9 - Heart failure, unspecified Category: Medical Code(s): I50.9 - Heart failure, unspecified (4) Subtherapeutic international normalized ratio (INR) Current visit: Yes Status: Acute Category: Medical Code(s): R79.1 - Abnormal coagulation profile (5) Vomiting and diarrhea Current visit: Yes Status: Acute Category: Medical Code(s): R11.10 - Vomiting, unspecified; R19.7 - Diarrhea, unspecified (6) Abnormal abdominal CT scan Current visit: Yes Status: Acute Category: Medical Code(s): R93.5 - Abnormal findings on diagnostic imaging of other abdominal regions, including retroperitoneum (7) Acute respiratory failure with hypoxia Current visit: Yes Status: Acute Category: Medical Code(s): J96.01 - Acute respiratory failure with hypoxia (8) Positive blood culture Current visit: Yes Status: Acute Category: Medical Code(s): R78.81 - Bacteremia - Assessment and plan all Dx Assessment and Plan for all problems:: agree with above and continue IV invanz on PICC line
--- NOTE | 2018-03-23 15:36 | Discharge Summary ---
General - General Admission date:: 03/19/18 Discharge date: 03/23/18 HPI HPI: Mr. Roblero is an 87-year-old male who is a patient with the [facility]. He was not a good historian and stated that he was eating yesterday when he became short of breath and vomited. He stated his called the ambulance and he was brought to the emergency room. He was unsure exactly why he was hospitalized. He denied any pain or shortness of air and thought that he might of had some diarrhea for the previous few days. Hospital Course Hospital Course: Patient made gradual improvement. He was diuresed with Lasix which improved congestive heart failure on his chest x-ray. Lactic acid normalized. He was started on IV antibiotics and continued throughout his stay. By 03/21/2018 he was better. He was pleasantly confused. He was tolerating his diet. He was weaned from oxygen to room air. On 1110 he had a PICC line inserted for home IV antibiotic treatment. Blood cultures did return showing E. coli. Sensitive to the antibiotics that he was receiving. By 03/23/2018 patient was eating well without nausea, vomiting, or diarrhea. He remained comfortable. He was pleasantly confused throughout his stay. He was stable to be discharged home and to receive IV antibiotics for total of 14 days. See discharge orders. Objective Vital signs: Temp Pulse Resp BP Pulse Ox 97.5 F L 64 16 149/94 H 95 03/23/18 12:00 03/23/18 12:00 03/23/18 12:00 03/23/18 12:00 03/23/18 12:00 Narrative: Exam Vital signs and Labs for Last 24 Hours: Temp Pulse Resp BP Pulse Ox 97.8 F 64 18 161/80 H 93 L 03/23/18 04:00 03/23/18 04:00 03/23/18 04:00 03/23/18 04:00 03/23/18 04:00 Laboratory Results - last 24 hr 03/23/18 06:47: WBC 5.6, RBC 3.95 L, Hgb 11.8 L, Hct 38.7 L, MCV 97.9 H, MCH 30.0, MCHC 30.6 L, RDW 15.0, Plt Count 109 L D, MPV 8.9, Neut % (Auto) 69.1, Lymph % (Auto) 13.1, [place] % (Auto) 8.3, Eos % (Auto) 8.6, Baso % (Auto) 0.8, Neut # (Auto) 3.8, Lymph # (Auto) 0.7, [place] # (Auto) 0.5, Eos # (Auto) 0.5 H, Baso # (Auto) 0.1 I & O for Last 24 hours: Intake & Output 03/20/18 03/21/18 03/22/18 03/23/18 11:59 11:59 11:59 11:59 Intake Total 551 / 551 2030 / 2030 3378 / 3378 1678 / 1678 Output Total 1500 / 1500 1000 / 1000 3000 / 3000 Balance -949 / -949 1031 / 1031 378 / 378 1678 / 1678 Weight 252 lb 8 oz 155 lb 4 oz 256 lb 8 oz 259 lb 2 oz Microbiology Reports for the Last 24 Hours: Microbiology 03/19/18 14:00 Blood Blood Culture - Preliminary Escherichia coli Gram Negative Rods 03/19/18 14:00 Blood Blood Culture - Preliminary Escherichia coli - Constitutional no acute distress Comments: Appears comfortable - *Routine Respiratory Exam Present: CTA bilaterally (Anteriorly and posteriorly) - *Routine Cardiovascular Exam Present: RRR - *Routine Abdominal Exam Present: soft, normoactive bowel sounds. Absent: tenderness Comments: Large - *Routine Extremities Exam Present: edema (Bilateral pitting edema) - *Routine Neurological Exam Present: alert (Pleasantly disoriented) Results Completed studies during hospitalization [Text1]: 03/19/2018 chest x-ray MPRESSION: CHF with pulmonary edemaIMPRESSION: 03/19/2018 CT of the abdomen and pelvis 1. Slight increased density of the gallbladder which could be due to some stones or sludge with questionable gallbladder wall thickening. Ultrasound may be of further value. 2. Small amount fluid in the left paracolic gutter and left lower quadrant nonspecific. 3. Colonic diverticulosis 03/19/2018 CT of the chest IMPRESSION: 1. Small bilateral effusions with cardiomegaly and interstitial and alveolar edema consistent with CHF. Possible infiltrate in the right lung base. 2. Mediastinal adenopathy 03/20/2018 repeat chest x-ray IMPRESSION: Improvement in CHF with some residual airspace disease in the right lower lobe 03/20/2018 ultrasound of the gallbladder IMPRESSION: Cholelithiasis Laboratory Tests 03/19/18 03/19/18 03/19/18 13:06 13:06 13:06 Sodium Potassium Chloride Carbon Dioxide Anion Gap BUN Creatinine Estimated Creat Clear Estimated GFR Est GFR ( Amer) Glucose Lactate Total Bilirubin 2.3 H AST 170 H ALT 98 H Alkaline Phosphatase 168 H Troponin I 0.03 B-Natriuretic Peptide 272 H Amylase 22 L Lipase 91 03/19/18 03/19/18 03/19/18 13:58 19:04 22:20 Sodium Potassium Chloride Carbon Dioxide Anion Gap BUN Creatinine Estimated Creat Clear Estimated GFR Est GFR ( Amer) Glucose Lactate 2.8 H 2.4 H Total Bilirubin AST ALT Alkaline Phosphatase Troponin I 0.06 B-Natriuretic Peptide Amylase Lipase 03/19/18 03/20/18 03/20/18 22:20 04:30 04:30 Sodium 143 Potassium 4.5 D Chloride 106 Carbon Dioxide 31 Anion Gap 10.5 BUN 23 H Creatinine 1.21 D Estimated Creat Clear 70 Estimated GFR 57 L Est GFR ( Amer) 69 Glucose 110 H D Lactate 2.0 Total Bilirubin AST ALT Alkaline Phosphatase Troponin I 0.05 B-Natriuretic Peptide Amylase Lipase Labs on day of discharge: Labs from last 24 hours 03/23/18 06:47 WBC 5.6 RBC 3.95 L Hgb 11.8 L Hct 38.7 L MCV 97.9 H MCH 30.0 MCHC 30.6 L RDW 15.0 Plt Count 109 L D MPV 8.9 Neut % (Auto) 69.1 Lymph % (Auto) 13.1 [place] % (Auto) 8.3 Eos % (Auto) 8.6 Baso % (Auto) 0.8 Neut # (Auto) 3.8 Lymph # (Auto) 0.7 [place] # (Auto) 0.5 Eos # (Auto) 0.5 H Baso # (Auto) 0.1 Preliminary micro results at discharge 03/19/18 14:00 Blood Culture - Preliminary Blood Escherichia coli Gram Negative Rods 03/19/18 14:00 Blood Culture - Preliminary Blood Escherichia coli DS: Diagnosis - Discharge Diagnosis (1) Sepsis Status: Acute (2) Right lower lobe pneumonia Status: Acute (3) CHF (congestive heart failure) Status: Acute (4) Subtherapeutic international normalized ratio (INR) Status: Acute (5) Vomiting and diarrhea Status: Acute (6) Abnormal abdominal CT scan Status: Acute (7) Acute respiratory failure with hypoxia Status: Acute (8) Positive blood culture Status: Acute (9) Cholelithiasis Status: Acute Discharge Plan - Patient Discharge Instructions ACTIVITY: Continue current activity DIET: continue same diet Additional Instructions: Will need IV Invanz outpatient for total of 10 days via PICC. Patient Instructions: Escherichia coli Infection, DI for Heart Failure, DI for Pneumonia -- Adult, Low-Sodium Diet, Coumadin Vitamin K/ Diet, Coumadin Therapy Booklet - Follow up Plan Unknown provider or service follow up:: 03/23/18 10:37 with his PCP Disposition: Home, Self-Senior Care Medications: Home Medications Medication Instructions Recorded Confirmed Type Alfuzosin HCl [Alfuzosin HCl ER] 10 mg PO DAILY 03/19/18 03/19/18 History Carvedilol [Carvedilol 25mg Tab] 12.5 mg PO BID 03/19/18 03/20/18 History Finasteride [Proscar 5mg Tablet] 5 mg PO DAILY 03/19/18 03/19/18 History Furosemide [Lasix 40mg tab] 40 mg PO DAILY 03/19/18 03/19/18 History Omeprazole [Omeprazole 20mg Tab] 20 mg PO DAILY 03/19/18 03/19/18 History Salsalate 750 mg PO BID 03/19/18 03/19/18 History Warfarin Sodium [Coumadin 5mg 5 mg PO DAILY 03/19/18 03/20/18 History tablet] Cholecalciferol (Vitamin D3) 1,000 unit PO DAILY 03/20/18 03/20/18 History [Vitamin D3 1,000 Unit Cap] Fluticasone Propionate [Flonase 1 spr NS DAILY 03/20/18 03/20/18 History 50mcg nasal spray 16gm] Lisinopril [Lisinopril 40mg Tablet] 40 mg PO DAILY 03/20/18 03/20/18 History Prescriptions/Medication Reconciliation: New Ertapenem Sodium [Invanz 1gm Vial] 1 gm IV Q24H vial Continue Carvedilol [Carvedilol 25mg Tab] 12.5 mg PO BID Omeprazole [Omeprazole 20mg Tab] 20 mg PO DAILY Furosemide [Lasix 40mg tab] 40 mg PO DAILY Salsalate 750 mg PO BID Finasteride [Proscar 5mg Tablet] 5 mg PO DAILY Alfuzosin HCl [Alfuzosin HCl ER] 10 mg PO DAILY Fluticasone Propionate [Flonase 50mcg nasal spray 16gm] 1 spr NS DAILY Lisinopril [Lisinopril 40mg Tablet] 40 mg PO DAILY Warfarin Sodium [Coumadin 5mg tablet] 5 mg PO DAILY Cholecalciferol (Vitamin D3) [Vitamin D3 1,000 Unit Cap] 1,000 unit PO DAILY
== END 2018-03-23 17:03 | disposition home or self-care (01) ==
LOC: 2ND 12:57 → ER 12:57 → OBSVTOIN 18:52 → 2ND 18:53
PROVIDERS: ADMIT Emergency Medicine; ATTEND Emergency Medicine

== ENCOUNTER 2018-07-17 18:00 | Inpatient (IN) ==
[2018-07-17 18:19] LABS: ABG Base Excess 3.5 mmol/L (-2.4-2.3); ABG HCO3 27.7 mmhg (22.0-26.0); ABG Oxygen Saturation 97 % (90-100); ABG PCO2 42.1 mmhg (35.0-45.0); ABG PH 7.44 mmol/L (7.35-7.45); ABG PO2 96.3 mmhg (80-100)
[2018-07-17 18:22] LABS: Allen's Test Patient Unable
[2018-07-17 18:28] LABS: Basophils % 0.2 % (0.1-2.0); Eosinophils % 0.5 % (0.1-12.0); Hematocrit 35.9 % (42.0-52.0); Hemoglobin 11.7 g/dL (14.1-18.0); Lymphocytes # 0.7 K/mm3 (0.7-4.5); Lymphocytes % 8.6 % (10-50); Mean Corpuscular HGB Conc 32.5 g/dL (31.8-35.4); Mean Corpuscular Hemoglobin 30.8 pg (27.0-31.2); Mean Corpuscular Volume 94.9 fl (80-94); Mean Platelet Volume 8.1 fl (7.4-10.4); Monocytes # 0.6 K/mm3 (0.1-1.0); Monocytes % 7.3 % (1.7-9.3); Neutrophils # 6.7 K/mm3 (1.8-7.8); Neutrophils % 83.6 % (37.0-80.0); Platelet Count 122 K/mm3 (142-424); Red Blood Count 3.78 M/mm3 (4.60-6.20); Red Cell Distribution Width 15.2 % (11.5-17.5)
--- NOTE | 2018-07-17 18:32 | Emergency Department Note ---
ED Disposition Clinical Impression: Bilateral pneumonia, CHF (congestive heart failure) Disposition: Admitted As Inpatient Condition on Discharge: Fair Time of Disposition: 20:11 - Critical Care Critical Care Time: No Attestation: On 07/17/18, the high probability of a clinically significant, sudden or life threatening deterioration of the following system(s) required my full and direct attention, intervention and personal management. The time I documented below is in addition to time spent performing reported procedures but includes the following listed in this critical care notation. Medical Decision Making - Medical Records Medical records reviewed: Yes: I reviewed the patient's medical records. - Didier Inquiry Pt receiving controlled substance: No Didier was queried for this patient: No Vital Signs: 07/17/18 18:02 07/17/18 18:44 07/17/18 18:45 Temperature 98.0 F Temperature Source Oral Pulse Rate 85 Pulse Rate [Left Radial] Pulse Rate [Right Brachial] 104 H 97 H Respiratory Rate 28 H Blood Pressure Blood Pressure [Left Arm] Blood Pressure [Right Arm] 158/75 H 214/96 H Blood Pressure Mean [Left Arm] Blood Pressure Mean [Right Arm] 102 135 Blood Pressure Source Blood Pressure Source [Left Arm] Blood Pressure Source [Right Arm] Automatic Cuff Automatic Cuff Blood Pressure Position Blood Pressure Position [Left Arm] Blood Pressure Position [Right Arm] Sitting Sitting 02 Sat by Pulse Oximetry 97 90 L Oxygen Delivery Method Room Air Nasal Cannula Oxygen Flow Rate (LPM) 4 07/17/18 20:30 07/17/18 20:35 07/17/18 21:44 Temperature 98.7 F 98.7 F Temperature Source Temporal Artery Scan Temporal Artery Scan Pulse Rate 72 Pulse Rate [Left Radial] Pulse Rate [Right Brachial] 67 71 Respiratory Rate 24 20 Blood Pressure 165/80 H Blood Pressure [Left Arm] Blood Pressure [Right Arm] 168/89 H 168/89 H Blood Pressure Mean [Left Arm] Blood Pressure Mean [Right Arm] 115 115 Blood Pressure Source Automatic Cuff Blood Pressure Source [Left Arm] Blood Pressure Source [Right Arm] Automatic Cuff Automatic Cuff Blood Pressure Position Supine Blood Pressure Position [Left Arm] Blood Pressure Position [Right Arm] Sitting Supine 02 Sat by Pulse Oximetry 95 93 L Oxygen Delivery Method Venturi Mask Room Air Venturi Mask Oxygen Flow Rate (LPM) 6 10 07/17/18 21:47 Temperature 97.7 F Temperature Source Axillary Pulse Rate Pulse Rate [Left Radial] 79 Pulse Rate [Right Brachial] Respiratory Rate 24 Blood Pressure Blood Pressure [Left Arm] 143/82 H Blood Pressure [Right Arm] Blood Pressure Mean [Left Arm] 102 Blood Pressure Mean [Right Arm] Blood Pressure Source Blood Pressure Source [Left Arm] Automatic Cuff Blood Pressure Source [Right Arm] Blood Pressure Position Blood Pressure Position [Left Arm] Supine Blood Pressure Position [Right Arm] 02 Sat by Pulse Oximetry 98 Oxygen Delivery Method Venturi Mask Oxygen Flow Rate (LPM) - Lab Data Lab results reviewed: Yes: I reviewed the patient's lab results. Lab Results 07/17/18 18:00: WBC 8.0, RBC 3.78 L, Hgb 11.7 L, Hct 35.9 L, MCV 94.9 H, MCH 30.8, MCHC 32.5, RDW 15.2, Plt Count 122 L, MPV 8.1, Neut % (Auto) 83.6 H, Lymph % (Auto) 8.6 L, Marshall % (Auto) 7.3, Eos % (Auto) 0.5, Baso % (Auto) 0.2, Neut # (Auto) 6.7, Lymph # (Auto) 0.7, Marshall # (Auto) 0.6, Eos # (Auto) 0.0, Baso # (Auto) 0.0 07/17/18 18:00: Sodium 144, Potassium 3.3 L, Chloride 105, Carbon Dioxide 29, Anion Gap 13.3, BUN 22 H, Creatinine 1.04, Estimated Creat Clear 58, Estimated GFR 67, Est GFR ( Amer) 82, Glucose 147 H, Calcium 9.2, Total Bilirubin 2.1 H, AST 29, ALT 21, Alkaline Phosphatase 108, Total Creatine Kinase 229, CK- MB (CK-2) 1.2, CK-MB (CK-2) Rel Index 0.5, Troponin I 0.10 H, Total Protein 8.1, Albumin 3.0 L, Globulin 5.1 H, Albumin/Globulin Ratio 0.6 L 07/17/18 18:00: Lactate 1.7 07/17/18 18:00: B-Natriuretic Peptide 678 H 07/17/18 18:00: PT 22.8 H, INR 2.27 H, APTT 31.5 07/17/18 18:16: Specimen Source Right radial, O2 % 8 lpm, 54%, ABG pH 7.44, ABG pCO2 42.1, ABG pO2 96.3, ABG HCO3 27.7 H, ABG Total CO2 29.0 H, ABG O2 Saturation 97, ABG Base Excess 3.5 H, Freddy Test Patient unable Result diagrams: 07/18/18 06:58 07/22/18 06:35 Orders (Tests/Meds): ED MEDICATIONS Discontinued Medications Generic Name Dose Route Start Last Admin Trade Name Freq PRN Reason Stop Dose Admin Acetaminophen 650 mg 07/17/18 18:52 07/17/18 18:58 Acetaminophen 325mg Tab PO 07/17/18 18:53 650 mg ONCE ONE Administration Acetaminophen 650 mg 07/17/18 21:36 07/21/18 02:30 Acetaminophen 325mg Tab PO 08/16/18 21:35 650 mg Q4HP PRN Administration As Needed for Fever or Pain Albuterol Sulfate 2.5 mg 07/17/18 18:24 07/17/18 18:32 Albuterol 0.083% 2.5mg/3ml [facility] 07/17/18 18:25 2.5 mg ONCE ONE Administration Albuterol/Ipratropium 3 ml 07/17/18 21:36 07/18/18 05:50 Duoneb 3ml [facility] 08/16/18 21:35 3 ml Q4H [facility] Administration Albuterol/Ipratropium 3 ml 07/18/18 08:30 07/23/18 16:48 Duoneb 3ml [facility] 08/16/18 21:35 3 ml Q4RT [facility] Administration Amlodipine Besylate 5 mg 07/20/18 12:39 07/21/18 00:17 Norvasc 5mg Tablet PO 08/19/18 12:38 5 mg DAILYP PRN Administration Blood Pressure - High Carvedilol 12.5 mg 07/17/18 21:36 07/17/18 22:29 Coreg 25mg Tablet PO 08/16/18 21:35 12.5 mg BID MAR[facility] Administration Carvedilol 12.5 mg 07/18/18 09:00 07/18/18 09:27 Coreg 12.5mg Tablet PO 08/17/18 08:59 12.5 mg BID [facility] Administration Carvedilol 12.5 mg 07/18/18 21:00 07/20/18 09:55 Coreg 25mg Tablet PO 08/17/18 20:59 12.5 mg BID [facility] Administration Carvedilol 12.5 mg 07/20/18 12:45 07/20/18 14:48 Coreg 12.5mg Tablet PO 07/20/18 12:46 12.5 mg ONCE ONE Administration Carvedilol 25 mg 07/20/18 21:00 07/23/18 10:08 Coreg 25mg Tablet PO 08/19/18 20:59 25 mg BID [facility] Administration Furosemide 40 mg 07/18/18 09:00 07/19/18 08:37 Lasix 40mg/4ml Vial IV 08/17/18 08:59 40 mg DAILY [facility] Administration Furosemide 20 mg 07/19/18 09:36 07/19/18 10:35 Lasix 20mg/2ml Vial IV 07/19/18 09:37 20 mg ONCE ONE Administration Furosemide 40 mg 07/19/18 16:00 07/22/18 08:20 Lasix 40mg/4ml Vial IV 08/18/18 15:59 40 mg BIDL [facility] Administration Furosemide 20 mg 07/20/18 10:45 07/20/18 11:28 Lasix 20mg/2ml Vial IV 07/20/18 10:46 20 mg ONCE ONE Administration Furosemide 20 mg 07/21/18 08:57 07/21/18 10:16 Lasix 20mg/2ml Vial IV 07/21/18 08:58 20 mg ONCE ONE Administration Furosemide 40 mg 07/22/18 09:30 Lasix 40mg Tablet PO 08/21/18 09:29 BIDL [facility]LEY Furosemide 40 mg 07/22/18 13:00 07/23/18 13:20 Lasix 40mg/4ml Vial IV 08/21/18 12:59 40 mg TID [facility] Administration Guaifenesin 1,200 mg 07/19/18 21:00 07/23/18 10:07 Mucinex 600mg Tablet PO 08/18/18 20:59 1,200 mg BID [facility] Administration Hydralazine HCl 50 mg 07/18/18 09:00 07/18/18 09:27 Hydralazine Hcl 25mg Tablet PO 08/17/18 08:59 50 mg TID [facility] Administration Hydralazine HCl 50 mg 07/18/18 13:00 07/20/18 09:55 Hydralazine Hcl 25mg Tablet PO 08/17/18 12:59 50 mg TID [facility] Administration Hydrocodone Bit/Homatropine Methylb 1 each 07/18/18 23:45 07/18/18 23:52 Hycodan 5mg Tablet PO 07/18/18 23:46 1 each ONCE ONE Administration Ceftriaxone Sodium 2 gm/ 50 mls @ 100 mls/hr 07/17/18 20:15 07/17/18 20:18 Sodium Chloride IV 07/31/18 20:14 100 mls/hr Q24H [facility] Administration Protocol Azithromycin 500 mg/ Sodium 250 mls @ 250 mls/hr 07/17/18 20:15 07/17/18 20:32 Chloride IV 07/31/18 20:14 250 mls/hr Q24H [facility] Administration Protocol Azithromycin 500 mg/ Sodium 250 mls @ 250 mls/hr 07/18/18 21:00 07/22/18 21:51 Chloride IV 07/31/18 20:59 250 mls/hr Q24H [facility] Administration Protocol Ceftriaxone Sodium 2 gm/ 50 mls @ 100 mls/hr 07/18/18 17:00 07/18/18 16:16 Sodium Chloride IV 07/31/18 16:59 100 mls/hr Q24H [facility] Administration Protocol Sodium Chloride 1,000 mls @ 50 mls/hr 07/17/18 21:36 07/20/18 19:51 Sod Chlor 0.9% 1000ml Bag IV 08/16/18 21:35 Not Given .Q20H [facility]LEY Ceftriaxone Sodium 2 gm/ 100 mls @ 100 mls/hr 07/19/18 17:00 07/23/18 15:47 Sodium Chloride IV 08/02/18 16:59 100 mls/hr Q24H [facility] Administration Protocol Isosorbide Dinitrate 20 mg 07/21/18 13:00 07/23/18 13:20 Isordil 20mg Tablet PO 08/20/18 12:59 20 mg TID [facility] Administration Lisinopril 40 mg 07/18/18 09:00 07/18/18 09:28 Zestril 20mg Tab PO 08/17/18 08:59 40 mg DAILY [facility] Administration Lisinopril 10 mg 07/22/18 09:30 07/23/18 10:07 Zestril 10mg Tablet PO 08/21/18 09:29 10 mg DAILY [facility] Administration Lisinopril 40 mg 07/24/18 09:00 Zestril 20mg Tab PO 08/23/18 08:59 DAILY [facility] Methylprednisolone Sodium Succinate 125 mg 07/17/18 18:08 07/17/18 18:32 Solu-Medrol 125mg/2ml Vial IV 07/17/18 18:09 125 mg ONCE ONE Administration Pat Own Med 1 each 07/18/18 21:00 07/22/18 21:46 Omeprazole 20 Mg PO 08/17/18 20:59 1 each HS MARLEY Administration Pat Own Med 1 each 07/19/18 09:00 07/23/18 10:08 Lisinopril 40 Mg PO 08/18/18 08:59 1 each DAILY MARLEY Administration Pantoprazole Sodium 40 mg 07/23/18 21:00 Protonix 40mg Tablet PO 08/22/18 20:59 HS MARLEY Potassium Chloride 20 meq 07/20/18 21:00 07/21/18 08:14 Klor-Con 20meq Tablet PO 08/19/18 20:59 20 meq BID MARLEY Administration Potassium Chloride 40 meq 07/21/18 21:00 07/23/18 10:07 Klor-Con 20meq Tablet PO 08/20/18 20:59 40 meq BID MARLEY Administration Sodium Chloride 3 ml 07/18/18 02:29 Sodium Chloride 3% 15ml Neb IH 08/17/18 02:28 ONCE PRN INDUCE SPUTUM COLLECTION Sodium Chloride 10 ml 07/20/18 12:24 Saline Flush 10ml Syringe IV 08/19/18 12:23 NEEDED PRN Maintain IV Site Spironolactone 25 mg 07/20/18 09:00 07/23/18 10:07 Aldactone 25mg Tablet PO 08/19/18 08:59 25 mg DAILY MARLEY Administration Verapamil HCl 120 mg 07/21/18 09:15 07/21/18 10:27 Calan Sr 120mg Tablet PO 08/20/18 09:14 Not Given DAILY MARLEY Warfarin Sodium 5 mg 07/18/18 09:00 Coumadin 5mg Tablet PO 08/17/18 08:59 DAILY MARLEY Warfarin Sodium 5 mg 07/18/18 09:00 Coumadin 5mg Tablet PO 08/17/18 08:59 COUMADIN MARLEY Warfarin Sodium 5 mg 07/18/18 11:00 07/20/18 11:28 Coumadin 5mg Tablet PO 08/17/18 10:59 5 mg COUMADIN MARLEY Administration General Adult HPI - General Chief complaint: Shortness of Breath/Dyspnea Stated complaint: SOA Time Seen by Provider: 07/17/18 18:20 Mode of Arrival: EMS Limitations: No Limitations Description of Symptoms (Recalled from ER Triage Doc. by RN): respiratory difficulty after eating; feels like something might be stuck - History of Present Illness HPI narrative: Patient has been sick for week or more, refusing to go to [facility]. cough, congestion, now some confusion. No history of copd - Related Data Home Medications Medication Instructions Recorded Confirmed RX: Carvedilol [Carvedilol 25mg 12.5 mg PO BID 03/19/18 07/17/18 Tab] RX: Finasteride [Proscar 5mg 5 mg PO DAILY 03/19/18 07/17/18 Tablet] RX: Omeprazole [Omeprazole 20mg 20 mg PO DAILY 03/19/18 07/17/18 Tab] RX: Salsalate 750 mg PO BID 03/19/18 07/17/18 RX: Warfarin Sodium [Coumadin 5mg 5 mg PO DAILY 03/19/18 07/17/18 tablet] RX: Cholecalciferol (Vitamin D3) 1,000 unit PO DAILY 03/20/18 07/17/18 [Vitamin D3 1,000 Unit Cap] RX: Fluticasone Propionate 1 spr NS DAILY 03/20/18 07/17/18 [Flonase 50mcg nasal spray 16gm] RX: Lisinopril [Lisinopril 40mg 40 mg PO DAILY 03/20/18 07/17/18 Tablet] RX: Cetirizine HCl 5 mg PO DAILY 07/17/18 07/17/18 RX: Hydralazine HCl 50 mg PO TID 07/17/18 07/17/18 RX: Alfuzosin HCl [Uroxatral] 10 mg PO DAILY 07/18/18 07/18/18 Previous Rx's Medication Instructions Recorded RX: Cefdinir [Omnicef 300mg 300 mg PO BID #14 cap 07/23/18 Capsule] RX: Furosemide [Lasix 40mg tablet] 40 mg PO TID #90 tablet 07/23/18 RX: Potassium Chloride [Klor-con 20 meq PO BID #60 tablet 07/23/18 20 mEq tablet] RX: Spironolactone [Aldactone 25mg 25 mg PO DAILY #30 tablet 07/23/18 Tab] RX: guaiFENesin [Mucinex 600mg 1,200 mg PO BID #60 tab.er.12h 07/23/18 tablet] Allergies Allergy/AdvReac Type Severity Reaction Status Date / Time No Known Allergies Allergy Verified 03/19/18 13:10 [facility] History - Hepatitis A Screen Drug use history?: No High risk sexual behaviors?: No History of sexually transmitted infection?: No Currently employed?: No Childcare worker?: No Do you have indoor plumbing?: Yes Do you have electricity?: Yes Attestation statement:: This patient has been screened for Hepatitis A risk factors. I have reviewed the patient's past medical history: Yes Medical History: Reports:: Home Oxygen, Hyperlipidemia, Hypertension Denies:: Cancer, Diabetes Mellitus Type 1, Diabetes Mellitus Type 2, MRSA Amputation: No Fractures: No - Social History Educational Level: Completed High School Smoking Status: Unknown if ever smoked Tobacco Type: cigarettes Alcohol Intake: never Occupational Status: retired Housing: house Household Members: spouse - Psychiatric History Expresses thoughts of harming self/others: None Suicide Plan Description: No Plan Family Hx:: Hyperlipidemia, Hypertension ROS Obtained: Yes All systems reviewed & no additional complaints - Constitutional Constitutional: Reports chills, Reports fever(s), Reports weakness - ENT Ears, Nose, Mouth, and Throat: Reports sore throat, Reports throat swelling - Cardiovascular Cardiovascular: Denies chest pain, Reports dyspnea - Respiratory Respiratory: Yes chest congestion, Yes cough, Yes dyspnea, Yes dyspnea on exertion, Yes wheezing - Gastrointestinal Gastrointestingal: Reports: abdominal pain, diarrhea, nausea, vomiting - Genitourinary Male Genitourinary: Denies difficulty urinating - Musculoskeletal Musculoskeletal: Reports muscle weakness, Reports muscle aches - Integumentary/Breasts Skin/Breast: Reports system reviewed and no additional complaints, except as docu, Denies rash - Neurologic Neurologic: Reports system reviewed and no additional complaints, except as docu, Denies behavioral changes, Denies focal weakness, Denies headache(s), Denies syncope, Reports weakness - Hematologic/Lymphatic Henatologic/Lymphatic: Denies easy bleeding, Denies easy bruising Physical Exam - General General appearance: alert, in distress, other (coughing, dyspneic) - Head Head exam: atraumatic, normocephalic, normal inspection - Eye Eye exam: Present: normal appearance, PERRL, EOMI - ENT ENT exam: Present: normal exam, normal oropharynx, mucous membranes moist, TM's normal bilaterally, normal external ear exam - Respiratory Respiratory exam: Present: respiratory distress, wheezes. Absent: normal lung sounds bilaterally - Cardiovascular Cardiovascular exam: Present: regular rate, normal rhythm - Abdominal Exam Abdominal exam: Present: soft. Absent: distention, tenderness, guarding, rebound, rigidity - Extremities Exam Extremities exam: Present: normal inspection. Absent: normal capillary refill - Neurological Exam Neurological exam: Present: CN II-XII intact. Absent: alert - Psychiatric Psychiatric exam: Present: normal affect - Skin Skin exam: Present: warm, dry, intact
[2018-07-17 19:03] LABS: Albumin/Globulin Ratio 0.6 (1.1-1.8); Anion Gap 13.3 mEq/L (5-15); Bilirubin,Total 2.1 mg/dL (0.2-1.0); Calcium 9.2 mg/dL (8.5-10.1); Globulin 5.1 gm/dl (1.3-3.2); Potassium 3.3 mmoL/L (3.5-5.1); Total Protein,Serum 8.1 gm/dL (6.4-8.2)
[2018-07-17 19:55] LABS: Activated Partial Thrombo Time 31.5 seconds (23.6-34.0); INR 2.27 (0.9-1.1); Prothrombin Time 22.8 seconds (9.4-11.8)
[2018-07-18 07:19] LABS: Basophils % 0.1 % (0.1-2.0); Hematocrit 36.9 % (42.0-52.0); Hemoglobin 11.8 g/dL (14.1-18.0); Lymphocytes # 0.5 K/mm3 (0.7-4.5); Mean Corpuscular Hemoglobin 30.8 pg (27.0-31.2); Mean Corpuscular Volume 96.4 fl (80-94); Mean Platelet Volume 8.7 fl (7.4-10.4); Monocytes # 0.3 K/mm3 (0.1-1.0); Neutrophils # 6.8 K/mm3 (1.8-7.8); Neutrophils % 89.9 % (37.0-80.0); Platelet Count 118 K/mm3 (142-424); Red Blood Count 3.83 M/mm3 (4.60-6.20); Red Cell Distribution Width 15.1 % (11.5-17.5); White Blood Count 7.6 K/mm3 (4.8-10.8)
[2018-07-18 07:22] LABS: Anion Gap 9.7 mEq/L (5-15); Calcium 9.2 mg/dL (8.5-10.1); Potassium 3.7 mmoL/L (3.5-5.1)
[2018-07-18 08:44] LABS: Lymphocytes % 6 % (10-50); Monocytes % 4 % (2-9); Neutrophils % 89 % (42-76); Total Cells Counted 100
--- NOTE | 2018-07-18 09:12 | History & Physical Report ---
*Admission Date: 07/17/18 *Chief complaint: Shortness of breath *History of present illness: This 88-year-old white male is a patient of the [place] [facility]. He was brought to the emergency room at [facility] last evening with shortness of breath and congestion. He was evaluated in the emergency room and found to have some congestive heart failure and pneumonia. The [place] [facility] could not accept him on transfer to this he was admitted. He is a poor historian. I did find that he grew up on a farm in [place]. He has been a smoker in the past. He is not able to tell me about previous hospitalizations or surgeries. There is no family member present at this time. [facility] History Medical History: Reports:: Home Oxygen, Hyperlipidemia, Hypertension Denies:: Cancer, Diabetes Mellitus Type 1, Diabetes Mellitus Type 2, Internal Pacemaker, MRSA *Have you ever received a pneumonia vaccine?: (PT UNABLE TO STATE SECONDARY TO CONFUSION) *Have you received a flu vaccine this season?: (PT UNABLE TO REPORT SECONDARY TO CONFUSION) Other Surgeries: No: Pacemaker Amputation: No Fractures: No - *Social History Educational Level: Completed High School Smoking Status: Former smoker Tobacco Type: cigarettes Alcohol Intake: never *Occupational Status:: retired Housing: house Household Members: spouse, family *Travel in the last 8 weeks: None - Psychiatric History Expresses thoughts of harming self/others: None Suicide Plan Description: No Plan Family Hx:: Hyperlipidemia, Hypertension Review of Systems - Review of Systems Review of systems:: unable to obtain - *Neurologic Reports weakness, Denies behavioral changes, Denies localized weakness, Denies headache(s), Denies fainting Meds Home Medications Medication Instructions Recorded Confirmed Type Carvedilol [Carvedilol 25mg Tab] 12.5 mg PO BID 03/19/18 07/17/18 History Finasteride [Proscar 5mg Tablet] 5 mg PO DAILY 03/19/18 07/17/18 History Furosemide [Lasix 40mg tablet] 40 mg PO DAILY 03/19/18 07/17/18 History Omeprazole [Omeprazole 20mg Tab] 20 mg PO DAILY 03/19/18 07/17/18 History Salsalate 750 mg PO BID 03/19/18 07/17/18 History Warfarin Sodium [Coumadin 5mg 5 mg PO DAILY 03/19/18 07/17/18 History tablet] Cholecalciferol (Vitamin D3) 1,000 unit PO DAILY 03/20/18 07/17/18 History [Vitamin D3 1,000 Unit Cap] Fluticasone Propionate [Flonase 1 spr NS DAILY 03/20/18 07/17/18 History 50mcg nasal spray 16gm] Lisinopril [Lisinopril 40mg Tablet] 40 mg PO DAILY 03/20/18 07/17/18 History Cetirizine HCl 5 mg PO DAILY 07/17/18 07/17/18 History Hydralazine HCl 50 mg PO TID 07/17/18 07/17/18 History Allergies Allergy/AdvReac Type Severity Reaction Status Date / Time No Known Allergies Allergy Verified 03/19/18 13:10 Exam Vital signs and Labs for Last 24 Hours: Temp Pulse Resp BP Pulse Ox 97.6 F 64 21 173/95 H 98 07/18/18 04:00 07/18/18 05:50 07/18/18 04:00 07/18/18 04:00 07/18/18 05:50 Laboratory Results - last 24 hr 07/17/18 18:00: WBC 8.0, RBC 3.78 L, Hgb 11.7 L, Hct 35.9 L, MCV 94.9 H, MCH 30.8, MCHC 32.5, RDW 15.2, Plt Count 122 L, MPV 8.1, Neut % (Auto) 83.6 H, Lymph % (Auto) 8.6 L, Glynn % (Auto) 7.3, Eos % (Auto) 0.5, Baso % (Auto) 0.2, Neut # (Auto) 6.7, Lymph # (Auto) 0.7, Glynn # (Auto) 0.6, Eos # (Auto) 0.0, Baso # (Auto) 0.0 07/17/18 18:00: Sodium 144, Potassium 3.3 L, Chloride 105, Carbon Dioxide 29, Anion Gap 13.3, BUN 22 H, Creatinine 1.04, Estimated Creat Clear 58, Estimated GFR 67, Est GFR ( Amer) 82, Glucose 147 H, Calcium 9.2, Total Bilirubin 2.1 H, AST 29, ALT 21, Alkaline Phosphatase 108, Total Creatine Kinase 229, CK- MB (CK-2) 1.2, CK-MB (CK-2) Rel Index 0.5, Troponin I 0.10 H, Total Protein 8.1, Albumin 3.0 L, Globulin 5.1 H, Albumin/Globulin Ratio 0.6 L 07/17/18 18:00: Lactate 1.7 07/17/18 18:00: B-Natriuretic Peptide 678 H 07/17/18 18:00: PT 22.8 H, INR 2.27 H, APTT 31.5 07/17/18 18:16: Specimen Source Right radial, O2 % 8 lpm, 54%, ABG pH 7.44, ABG pCO2 42.1, ABG pO2 96.3, ABG HCO3 27.7 H, ABG Total CO2 29.0 H, ABG O2 Saturation 97, ABG Base Excess 3.5 H, Freddy Test Patient unable 07/18/18 06:58: WBC 7.6, RBC 3.83 L, Hgb 11.8 L, Hct 36.9 L, MCV 96.4 H, MCH 30.8, MCHC 32.0, RDW 15.1, Plt Count 118 L, MPV 8.7, Neut % (Auto) 89.9 H, Lymph % (Auto) 6.0 L, Glynn % (Auto) 4.0, Eos % (Auto) 0.0 L, Baso % (Auto) 0.1, Neut # (Auto) 6.8, Lymph # (Auto) 0.5 L, Glynn # (Auto) 0.3, Eos # (Auto) 0.0, Baso # (Auto) 0.0, Total Counted 100, Neutrophils % (Manual) 89 H, Lymphocytes % (Manual) 6 L, Atypical Lymphs % 1.0, Monocytes % (Manual) 4, Platelet Estimate Slight decrease 07/18/18 06:58: Sodium 144, Potassium 3.7, Chloride 107, Carbon Dioxide 31, Anion Gap 9.7, BUN 22 H, Creatinine 1.02, Estimated Creat Clear 82, Estimated GFR 69, Est GFR ( Amer) 83, Glucose 167 H, Calcium 9.2 I & O for Last 24 hours: Intake & Output 07/15/18 07/16/18 07/17/18 07/18/18 11:59 11:59 11:59 11:59 Intake Total 903 / 903 Balance 903 / 903 Weight 255 lb 5 oz - Constitutional no acute distress Comments: He rambles in speech. He has difficulty hearing and is unable to respond cogently to my questions. - *Routine HEENT Exam Eye: Present: PERRL Comments: Edentulous with dental prosthetics. - *Routine Neck Exam Present: JVD - *Routine Respiratory Exam Comments: Moving air at the apices but decreased at the bases with rales. - *Routine Cardiovascular Exam Present: RRR (Heart sounds are distant.) - *Routine Abdominal Exam Present: soft. Absent: organomegaly, mass - *Routine Exam Scrotal: Absent: swelling, tenderness, mass Groin: Absent: inguinal hernia - *Routine Extremities Exam Present: edema (4+) - *Routine Skin Exam Present: intact, dry - *Routine Neurological Exam Present: alert (But has a hearing deficit and is not cogent in his responses.). Absent: motor deficit Assessment and Plan (1) Bilateral pneumonia Current visit: Yes Status: Acute Category: Medical Code(s): J18.9 - Pneum onia, unspecified organism (2) CHF (congestive heart failure) Current visit: Yes Status: Acute Category: Medical Code(s): I50.9 - Heart failure, unspecified - Assessment and plan all Dx Assessment and Plan for all problems:: Per orders. Diuretic treatment will be increased.
--- NOTE | 2018-07-18 13:04 | Pharmacy Consult Notes ---
[facility] Pharmacy VTE Monitoring - Patient Demographics Admission date: 07/18/18 Report Date: 07/18/18 Time: 13:03 Allergies/Adverse Reactions: Patient Allergies No Known Allergies Allergy (Verified 03/19/18 13:10) Height: 1.78 m Weight: 115.808 kg Patient Problems: Current Active Problems CHF (congestive heart failure) (Acute) Bilateral pneumonia (Acute) - VTE Risk Labs: VTE Related Lab Results Hgb 11.8 g/dL (14.1-18.0) L 07/18/18 06:58 Hct 36.9 % (42.0-52.0) L 07/18/18 06:58 Plt Count 118 K/mm3 (142-424) L 07/18/18 06:58 PT 22.8 seconds (9.4-11.8) H 07/17/18 18:00 INR 2.27 (0.9-1.1) H 07/17/18 18:00 APTT 31.5 seconds (23.6-34.0) 07/17/18 18:00 BUN 22 mg/dL (7-18) H 07/18/18 06:58 Creatinine 1.02 mg/dL (0.70-1.30) 07/18/18 06:58 Estimated Creat Clear 82 mL/min (50-200) 07/18/18 06:58 VTE Score: 4 VTE Risk Level: Low Risk - Prophylaxis Location of Applied Device: Not Applicable Pharmacologic Type: Warfarin (PATIENT TAKES WARFARIN AT HOME AND IS ORDERED HERE. INR 2.27 ON 07/17/18. THERAPEUTIC.)
[2018-07-19 06:54] LABS: Anion Gap 10.3 mEq/L (5-15); Potassium 3.3 mmoL/L (3.5-5.1)
--- NOTE | 2018-07-19 09:47 | Progress Note ---
Internal Medicine - PN: Subj *Date: 07/19/18 *Time: 09:44 Interval history: Patient remains clinically stable. He showed significant weight gain overnight from 255 to 263 pounds despite diuretic treatment. I am not sure why he is not on an KATE or an ARB. I will add losartan 50 mg twice daily and give additional diuretic. Cardiology will be consulted. Echocardiogram is ordered. Exam Vital signs and Labs for Last 24 Hours: Temp Pulse Resp BP Pulse Ox 97.6 F 75 16 158/80 H 95 07/19/18 08:00 07/19/18 08:00 07/19/18 08:00 07/19/18 08:00 07/19/18 08:00 Laboratory Results - last 24 hr 07/18/18 06:58: Total Counted 100, Neutrophils % (Manual) 89 H, Lymphocytes % (Manual) 6 L, Atypical Lymphs % 1.0, Monocytes % (Manual) 4, Platelet Estimate Slight decrease 07/19/18 06:25: Sodium 141, Potassium 3.3 L, Chloride 105, Carbon Dioxide 29, Anion Gap 10.3, BUN 25 H, Creatinine 0.86, Estimated Creat Clear 86, Estimated GFR 84, Est GFR ( Amer) 102 D, Glucose 116 H D, Calcium 9.0 I & O for Last 24 hours: Intake & Output 07/16/18 07/17/18 07/18/18 07/19/18 11:59 11:59 11:59 12:59 Intake Total 1143 / 1143 2199 / 2199 Output Total 800 / 800 1050 / 1050 Balance 343 / 343 1149 / 1149 Weight 255 lb 5 oz 263 lb 5 oz Microbiology Reports for the Last 24 Hours: Microbiology 07/18/18 05:50 Sputum - Expectorated Sputum Gram Stain - Final 07/18/18 05:50 Sputum - Expectorated Sputum Sputum Culture - Preliminary - Constitutional no acute distress - *Routine Respiratory Exam Present: decreased breath sounds Comments: Lungs sound clearer. - *Routine Cardiovascular Exam Present: RRR - *Routine Abdominal Exam Present: soft. Absent: tenderness - *Routine Extremities Exam Present: edema (4+) - *Routine Skin Exam Present: intact Assessment and Plan (1) Bilateral pneumonia Current visit: Yes Status: Acute Category: Medical Code(s): J18.9 - Pneumonia, unspecified organism (2) CHF (congestive heart failure) Current visit: Yes Status: Acute Category: Medical Code(s): I50.9 - Heart failure, unspecified - Assessment and plan all Dx Assessment and Plan for all problems:: See orders.
--- NOTE | 2018-07-20 07:41 | Consult Report ---
Addendum entered and electronically signed by ELTON David 07/20/18 12:34: Preliminary echo shows LVEF >50% without significant valve disease. Suspect the CHF is related to some diastolic dysfunction. Recommend increasing coreg to 25 mg BID and discontinuing hydralazine. Consider adding norvasc as needed for more BP control. Original Note: History of Present Illness Consult date: 07/20/18 Requesting physician: Enrrique Moody Consult reason: congestive heart failure Chief complaint: SOA, cough Additional Medical History:: 1. History of tobacco use, discontinued about 10 yrs ago 2. HTN 3. Coumadin therapy for a. fib A. EKG, 07/2018, A. fib with RBBB and associated STT abnormalities 4. History of CVA A. CT of head, 04/2016, Tiny of age-appropriate cortical atrophy and large ol d ischemic infarct left posterior parietal and occipital lobe, no acute intracranial pathology identified, I agree the [facility] report 5. Hard of hearing 6. CHF, 07/2018 A. Echo, 07/2018 History of present illness: This 88-year-old white male is a patient of the [place] hospital. He was brought to the emergency room at [facility] last evening with shortness of breath and congestion. He was evaluated in the emergency room and found to have some congestive heart failure and pneumonia. The [place] hospital could not accept him on transfer to this he was admitted. He is a poor historian. I did find that he grew up [place] a farm in [place]. He has been a smoker in the past. He is not able to tell me about previous hospitalizations or surgeries. There is no family member present at this time. The above per Dr. Moody Patient is hard of hearing and is a poor historian. Currently coughing when attempting to eat or drink anything. Unable to speak more than a couple of words before coughing. [facility] History Medical History: Reports:: Home Oxygen, Hyperlipidemia, Hypertension Denies:: Cancer, Diabetes Mellitus Type 1, Diabetes Mellitus Type 2, Internal Pacemaker, MRSA *Have you ever received a pneumonia vaccine?: (PT UNABLE TO STATE SECONDARY TO CONFUSION) *Have you received a flu vaccine this season?: (PT UNABLE TO REPORT SECONDARY TO CONFUSION) Other Surgeries: No: Pacemaker Amputation: No Fractures: No - *Social History Educational Level: Completed High School Smoking Status: Former smoker Tobacco Type: cigarettes Alcohol Intake: never *Occupational Status:: retired Housing: house Household Members: spouse, family *Travel in the last 8 weeks: None - Psychiatric History Expresses thoughts of harming self/others: None Suicide Plan Description: No Plan Family Hx:: Hyperlipidemia, Hypertension Meds Home Medications Medication Instructions Recorded Confirmed Type Carvedilol [Carvedilol 25mg Tab] 12.5 mg PO BID 03/19/18 07/17/18 History Finasteride [Proscar 5mg Tablet] 5 mg PO DAILY 03/19/18 07/17/18 History Furosemide [Lasix 40mg tablet] 40 mg PO DAILY 03/19/18 07/17/18 History Omeprazole [Omeprazole 20mg Tab] 20 mg PO DAILY 03/19/18 07/17/18 History Salsalate 750 mg PO BID 03/19/18 07/17/18 History Warfarin Sodium [Coumadin 5mg 5 mg PO DAILY 03/19/18 07/17/18 History tablet] Cholecalciferol (Vitamin D3) 1,000 unit PO DAILY 03/20/18 07/17/18 History [Vitamin D3 1,000 Unit Cap] Fluticasone Propionate [Flonase 1 spr NS DAILY 03/20/18 07/17/18 History 50mcg nasal spray 16gm] Lisinopril [Lisinopril 40mg Tablet] 40 mg PO DAILY 03/20/18 07/17/18 History Cetirizine HCl 5 mg PO DAILY 07/17/18 07/17/18 History Hydralazine HCl 50 mg PO TID 07/17/18 07/17/18 History Alfuzosin HCl [Uroxatral] 10 mg PO DAILY 07/18/18 07/18/18 History Allergies Allergy/AdvReac Type Severity Reaction Status Date / Time No Known Allergies Allergy Verified 03/19/18 13:10 Review of Systems - *Cardiovascular Reports shortness of breath, Reports shortness of breath with activity, Denies chest pain - *Respiratory Reports cough, Reports shortness of breath - *Gastrointestinal Denies abdominal pain, Denies loose stools - *Genitourinary Denies blood in urine - *Musculoskeletal Reports joint pain - *Neurologic Reports weakness, Denies behavioral changes, Denies localized weakness, Denies headache(s), Denies fainting Exam Vital signs and Labs for Last 24 Hours: Temp Pulse Resp BP Pulse Ox 97.6 F 75 20 171/88 H 95 07/20/18 04:00 07/20/18 05:58 07/20/18 04:00 07/20/18 04:00 07/20/18 05:58 I & O for Last 24 hours: Intake & Output 07/17/18 07/18/18 07/19/18 07/20/18 10:59 10:59 11:59 11:59 Intake Total 1804 / 1804 Output Total 1750 / 1750 Balance 54 / 54 Weight 264 lb 6 oz Microbiology Reports for the Last 24 Hours: Microbiology 07/18/18 05:50 Sputum - Expectorated Sputum Gram Stain - Final 07/18/18 05:50 Sputum - Expectorated Sputum Sputum Culture - Preliminary 07/17/18 18:00 Blood Blood Culture - Preliminary NO GROWTH AFTER 48 HOURS 07/17/18 18:00 Blood Blood Culture - Preliminary NO GROWTH AFTER 48 HOURS - *Routine HEENT Exam Head: Present: normocephalic Eye: Present: EOMI, PERRL ENT: Present: mucous membranes moist Comments: Poorly fitting dentures - *Routine Neck Exam Present: supple. Absent: JVD, carotid bruit Comments: Unable to adequately assess due to excessive coughing. - *Routine Respiratory Exam Present: decreased breath sounds, rales, rhonchi, wheezes. Absent: accessory muscle use - *Routine Cardiovascular Exam Present: RRR. Absent: murmur, gallop, rubs Comments: Unable to adequately assess due to excessive coughing - *Routine Abdominal Exam Present: soft. Absent: tenderness, distended, guarding - *Routine Extremities Exam Present: edema. Absent: calf tenderness - *Routine Neurological Exam Present: alert, moving all extremities Assessment and Plan (1) Bilateral pneumonia Current visit: Yes Status: Acute Category: Medical Code(s): J18.9 - Pneumonia, unspecified organism (2) CHF (congestive heart failure) Current visit: Yes Status: Acute Category: Medical Code(s): I50.9 - Heart failure, unspecified (3) Ex-smoker for more than 1 year Current visit: Yes Status: Acute Category: Social Hx Code(s): Z87.891 - Personal history of nicotine dependence (4) History of CVA (cerebrovascular accident) Current visit: Yes Status: Acute Category: Medical Code(s): Z86.73 - Personal history of transient ischemic attack (TIA), and cerebral infarction without residual deficits (5) Atrial fibrillation Current visit: Yes Status: Acute Category: Medical Code(s): I48.91 - Unspecified atrial fibrillation (6) On Coumadin for atrial fibrillation Current visit: Yes Status: Acute Category: Medical Code(s): Z78.9 - Other specified health status - Assessment and plan all Dx Assessment and Plan for all problems:: 1. Echo has been performed this AM. Will review and make further recommendations. 2. With difficulty swallowing and excessive cough, concerned for aspiration pneumonia. 3. Regarding congestive heart failure, patient is on carvedilol, lisinopril, and IV Lasix. Would recommend adding spironolactone. 4. Mildly elevated troponin, likely due to CHF and cardiac strain but with coronary artery calcifications noted on CT of chest last year, RBBB on EKG and CHF, concern for ischemic etiology. When patient is able to lie flat without coughing, then would recommend further workup (stress test or cardiac cath). Will repeat troponin and BNP today.
--- NOTE | 2018-07-20 12:28 | Progress Note ---
Internal Medicine - PN: Subj *Date: 07/20/18 *Time: 12:25 Interval history: He continues with congestion and cough. Weight has not decreased despite diuretics. Cardiology note appreciated. Spironolactone is added. Exam Vital signs and Labs for Last 24 Hours: Temp Pulse Resp BP Pulse Ox 98.1 F 70 20 161/85 H 94 L 07/20/18 08:00 07/20/18 09:43 07/20/18 08:00 07/20/18 08:00 07/20/18 08:00 Laboratory Results - last 24 hr 07/20/18 08:30: Troponin I 0.07 H 07/20/18 08:30: B-Natriuretic Peptide 248 H I & O for Last 24 hours: Intake & Output 07/18/18 07/19/18 07/20/18 07/21/18 10:59 11:59 11:59 11:59 Intake Total 2284 / 2284 Output Total 1750 / 1750 Balance 534 / 534 Weight 264 lb 6 oz Microbiology Reports for the Last 24 Hours: Microbiology 07/18/18 05:50 Sputum - Expectorated Sputum Gram Stain - Final 07/18/18 05:50 Sputum - Expectorated Sputum Sputum Culture - Final Normal Respiratory Sharifa 07/17/18 18:00 Blood Blood Culture - Preliminary NO GROWTH AFTER 48 HOURS 07/17/18 18:00 Blood Blood Culture - Preliminary NO GROWTH AFTER 48 HOURS - Constitutional no acute distress Comments: coughing - *Routine Respiratory Exam Present: rhonchi - *Routine Cardiovascular Exam Present: RRR - *Routine Extremities Exam Present: edema (actually seems improved) Assessment and Plan (1) Bilateral pneumonia Current visit: Yes Status: Acute Category: Medical Code(s): J18.9 - Pneumonia, unspecified organism (2) CHF (congestive heart failure) Current visit: Yes Status: Acute Category: Medical Code(s): I50.9 - Heart failure, unspecified (3) Ex-smoker for more than 1 year Current visit: Yes Status: Acute Category: Social Hx Code(s): Z87.891 - Personal history of nicotine dependence (4) History of CVA (cerebrovascular accident) Current visit: Yes Status: Acute Category: Medical Code(s): Z86.73 - Personal history of transient ischemic attack (TIA), and cerebral infarction without residual deficits (5) Atrial fibrillation Current visit: Yes Status: Acute Category: Medical Code(s): I48.91 - Unspecified atrial fibrillation (6) On Coumadin for atrial fibrillation Current visit: Yes Status: Acute Category: Medical Code(s): Z78.9 - Other specified health status
[2018-07-20 19:03] LABS: Anion Gap 13.2 mEq/L (5-15); Calcium 8.7 mg/dL (8.5-10.1); Potassium 3.2 mmoL/L (3.5-5.1)
--- NOTE | 2018-07-20 19:25 | Cardiology Report ---
PROCEDURE: 2-D M-mode and color Doppler study INDICATIONS FOR THE TEST: Chest pain COPD+ Heart Murmur Tobacco Smoking Palpitations Fatigue Syncope Edema Hypertension+Diabetes Mellitus Rheumatic Fever SOB WEI Obesity Hyperlipidemia+ Family History HD Additional History HOME O2, COUGHING THRU OUT EXAM PATIENT INFORMATION HEIGHT: 70 WEIGHT:263 GENDER: Male B/P:173/95 2-D/M-MODE INTERPRETATION: 2-D MEASUREMENTS OBSERVED VALUES IN CMS Right Ventricular Dimension (RVDd) 3.2 Interventricular Septum (Thickness)(IVsd) 1.9 Left Ventricular Internal Dimensions(LVIDd) 5.6 Left Ventricular Posterior Wall (Thickness)(LVPWd) 0.9 Aortic Root 3.2 Aortic Cusp Separation 1.8 Left Atrial Dimensions (LAD) 5.2 2D 1. Technically difficult study because of the patient's factor and poor acoustic windows 2. Left atrium is moderately enlarged, left ventricle is normal size, moderate concentric left ventricular hypertrophy present, visually estimated ejection fraction 50% with no regional wall motion abnormality. 3. The right atrium and right ventricle moderately enlarged with normal contractility. 4. The aortic valve is thickened and calcified with moderate reduction in the leaflet mobility. 5. The mitral valve has mitral calcification, mitral leaflets are minimally thickened. 6. The tricuspid valve leaflets are minimally thickened. 7. The pulmonic valve is poorly visualized. 8. No significant pericardial effusion noted. DOPPLER INTERROGATION: The aortic outflow velocities increased to 2.6 m/s, mean gradient an aortic valve area is not calculated, there is likely moderate aortic stenosis, there is no significant aortic insufficiency seen. If clinically indicated repeat study with better Doppler technique is recommended for the assessment of the aortic valve stenosis severity. Grade 3 diastolic dysfunction seen with restrictive filling pattern. Moderate tricuspid regurgitation, calculated right ventricular systolic pressure 52 mmHg represents moderate pulmonary hypertension. CONCLUSION: 1. Technically difficult study because of the patient's factor and poor acoustic windows 2. Moderate biatrial enlargement, normal left ventricular size, moderate concentric left ventricular hypertrophy, visually estimated ejection fraction of 50% with no regional wall motion abnormality, grade 3 diastolic dysfunction seen with restrictive filling pattern. 3. Thickened and calcified aortic valve morphologically there is moderate aortic stenosis, there is no aortic insufficiency, a repeat study with the better Doppler technique is recommended for accurate assessment of the aortic valve stenosis. 4. Mild mitral and moderate tricuspid regurgitation, calculated right ventricular systolic pressure is 52 mmHg consistent with moderate pulmonary hypertension. 5. No significant pericardial effusion noted.
[2018-07-21 07:53] LABS: INR 3.29 (0.9-1.1); Prothrombin Time 32.7 seconds (9.4-11.8)
--- NOTE | 2018-07-21 08:46 | Progress Note ---
Internal Medicine - PN: Subj *Date: 07/21/18 *Time: 08:46 Exam Vital signs and Labs for Last 24 Hours: Temp Pulse Resp BP Pulse Ox 97.6 F 81 20 160/84 H 97 07/21/18 04:00 07/21/18 05:55 07/21/18 04:00 07/21/18 04:00 07/21/18 07:45 Laboratory Results - last 24 hr 07/20/18 08:30: Troponin I 0.07 H 07/20/18 08:30: B-Natriuretic Peptide 248 H 07/20/18 18:40: Sodium 144, Potassium 3.2 L, Chloride 103, Carbon Dioxide 31, Anion Gap 13.2, BUN 23 H, Creatinine 0.92, Estimated Creat Clear 87, Estimated GFR 78, Est GFR ( Amer) 94, Glucose 181 H, Calcium 8.7 07/21/18 07:11: PT 32.7 H, INR 3.29 H I & O for Last 24 hours: Intake & Output 07/18/18 07/19/18 07/20/18 07/21/18 22:59 23:59 23:59 23:59 Intake Total 2654 / 2654 Output Total 1999 1100 / 1100 Balance 654 / 654 -1100 / -1100 Weight 119.918 kg 119.465 kg Microbiology Reports for the Last 24 Hours: Microbiology 07/18/18 05:50 Sputum - Expectorated Sputum Gram Stain - Final 07/18/18 05:50 Sputum - Expectorated Sputum Sputum Culture - Final Normal Respiratory Sharifa Assessment and Plan (1) Bilateral pneumonia Current visit: Yes Status: Acute Category: Medical Code(s): J18.9 - Pneumonia, unspecified organism (2) CHF (congestive heart failure) Current visit: Yes Status: Acute Category: Medical Code(s): I50.9 - Heart failure, unspecified (3) Ex-smoker for more than 1 year Current visit: Yes Status: Acute Category: Social Hx Code(s): Z87.891 - Personal history of nicotine dependence (4) History of CVA (cerebrovascular accident) Current visit: Yes Status: Acute Category: Medical Code(s): Z86.73 - Personal history of transient ischemic attack (TIA), and cerebral infarction without residual deficits (5) Atrial fibrillation Current visit: Yes Status: Acute Category: Medical Code(s): I48.91 - Unspecified atrial fibrillation (6) On Coumadin for atrial fibrillation Current visit: Yes Status: Acute Category: Medical Code(s): Z78.9 - Other specified health status The patient's infection will respond to the chosen ABx?: Yes Is the patient receiving the right drug, dose, and route?: Yes Could a more targeted ABx be ordered?: No
--- NOTE | 2018-07-21 09:09 | Progress Note ---
Subjective Date: 07/21/18 Time: 09:05 Principal diagnosis: CHF Interval history: 88-year-old white male in bed in no acute distress. Denies any chest pain, pressure or tightness. Readily admits that his memory is poor which complicates the patient's medical care. He does continue to cough intermittently during my visit. He continues to have lower extremity edema. Exam Vital signs and Labs for Last 24 Hours: Temp Pulse Resp BP Pulse Ox 97.6 F 111 H 20 160/84 H 94 L 07/21/18 08:00 07/21/18 08:00 07/21/18 08:00 07/21/18 08:00 07/21/18 08:00 Laboratory Results - last 24 hr 07/20/18 08:30: B-Natriuretic Peptide 248 H 07/20/18 18:40: Sodium 144, Potassium 3.2 L, Chloride 103, Carbon Dioxide 31, Anion Gap 13.2, BUN 23 H, Creatinine 0.92, Estimated Creat Clear 87, Estimated GFR 78, Est GFR ( Amer) 94, Glucose 181 H, Calcium 8.7 07/21/18 07:11: PT 32.7 H, INR 3.29 H I & O for Last 24 hours: Intake & Output 07/18/18 07/19/18 07/20/18 07/21/18 10:59 11:59 11:59 11:59 Intake Total 2284 / 2284 1090 / 1090 Output Total 1750 / 1750 2900 / 2900 Balance 534 / 534 -1810 / -1810 Weight 264 lb 6 oz 263 lb 6 oz Microbiology Reports for the Last 24 Hours: Microbiology 07/18/18 05:50 Sputum - Expectorated Sputum Gram Stain - Final 07/18/18 05:50 Sputum - Expectorated Sputum Sputum Culture - Final Normal Respiratory Sharifa - *Routine Respiratory Exam Present: CTA bilaterally, rales, wheezes. Absent: accessory muscle use, rhonchi - *Routine Cardiovascular Exam Present: irregularly irregular. Absent: murmur, gallop, rubs - *Routine Extremities Exam Present: edema. Absent: calf tenderness Progress Note: A&P (1) Bilateral pneumonia Status: Acute Current Visit: Yes (2) CHF (congestive heart failure) Status: Acute Current Visit: Yes (3) Ex-smoker for more than 1 year Status: Acute Current Visit: Yes (4) History of CVA (cerebrovascular accident) Status: Acute Current Visit: Yes (5) Atrial fibrillation Status: Acute Current Visit: Yes (6) On Coumadin for atrial fibrillation Status: Acute Current Visit: Yes (7) Diastolic dysfunction with acute on chronic heart failure Status: Acute Current Visit: Yes Assessment and Plan for All Diagnoses:: Recommend continue beta-flory due to the severe diastolic dysfunction. We will discontinue Norvasc. Add isordil 20 mg TID for help with BP and myocardial perfusion in setting of grade 3 diastolic dysfunction with CHF. Continue cautious IV diuretic therapy in light of the aortic stenosis Continue potassium replacement Consider discharge home tomorrow.
--- NOTE | 2018-07-21 09:22 | Progress Note ---
Internal Medicine - PN: Subj *Date: 07/21/18 *Time: 09:20 Interval history: The patient's condition remains status. He still congested but says he is breathing better. His weight has only declined a pound since yesterday. He still has much edema of the legs. I will order Wojciech wraps for the legs and continue with diuresis. His potassium was 3.2 this morning. Exam Vital signs and Labs for Last 24 Hours: Temp Pulse Resp BP Pulse Ox 97.6 F 111 H 20 160/84 H 94 L 07/21/18 08:00 07/21/18 08:00 07/21/18 08:00 07/21/18 08:00 07/21/18 08:00 Laboratory Results - last 24 hr 07/20/18 08:30: B-Natriuretic Peptide 248 H 07/20/18 18:40: Sodium 144, Potassium 3.2 L, Chloride 103, Carbon Dioxide 31, Anion Gap 13.2, BUN 23 H, Creatinine 0.92, Estimated Creat Clear 87, Estimated GFR 78, Est GFR ( Amer) 94, Glucose 181 H, Calcium 8.7 07/21/18 07:11: PT 32.7 H, INR 3.29 H I & O for Last 24 hours: Intake & Output 07/18/18 07/19/18 07/20/18 07/21/18 10:59 11:59 11:59 11:59 Intake Total 2284 / 2284 1090 / 1090 Output Total 1750 / 1750 2900 / 2900 Balance 534 / 534 -1810 / -1810 Weight 264 lb 6 oz 263 lb 6 oz Microbiology Reports for the Last 24 Hours: Microbiology 07/18/18 05:50 Sputum - Expectorated Sputum Gram Stain - Final 07/18/18 05:50 Sputum - Expectorated Sputum Sputum Culture - Final Normal Respiratory Sharifa - Constitutional no acute distress - *Routine Respiratory Exam Present: decreased breath sounds, rhonchi - *Routine Cardiovascular Exam Present: RRR - *Routine Extremities Exam Present: edema (4+ pitting edema) Assessment and Plan (1) Bilateral pneumonia Current visit: Yes Status: Acute Category: Medical Code(s): J18.9 - Pneumonia, unspecified organism (2) CHF (congestive heart failure) Current visit: Yes Status: Acute Category: Medical Code(s): I50.9 - Heart failure, unspecified (3) Ex-smoker for more than 1 year Current visit: Yes Status: Acute Category: Social Hx Code(s): Z87.891 - Personal history of nicotine dependence (4) History of CVA (cerebrovascular accident) Current visit: Yes Status: Acute Category: Medical Code(s): Z86.73 - Personal history of transient ischemic attack (TIA), and cerebral infarction without residual deficits (5) Atrial fibrillation Current visit: Yes Status: Acute Category: Medical Code(s): I48.91 - Unspecified atrial fibrillation (6) On Coumadin for atrial fibrillation Current visit: Yes Status: Acute Category: Medical Code(s): Z78.9 - Other specified health status (7) Diastolic dysfunction with acute on chronic heart failure Current visit: Yes Status: Acute Category: Medical Code(s): I50.33 - Acute on chronic diastolic (congestive) heart failure - Assessment and plan all Dx Assessment and Plan for all problems:: Wojciech wrap the legs. Continue diuresis. Continue with potassium supplementation.
[2018-07-22 07:16] LABS: Anion Gap 6.8 mEq/L (5-15); Calcium 8.9 mg/dL (8.5-10.1); Potassium 3.8 mmoL/L (3.5-5.1)
--- NOTE | 2018-07-22 08:32 | Progress Note ---
Internal Medicine - PN: Subj *Date: 07/22/18 *Time: 08:30 Interval history: Patient states he is feeling a little bit better this morning. He says he did cough all night and was able to cough up some sputum. He denies any pain. He did eat breakfast this morning and is sitting up in the chair watching television. Exam Vital signs and Labs for Last 24 Hours: Temp Pulse Resp BP Pulse Ox 98.0 F 75 20 138/68 96 07/22/18 08:00 07/22/18 08:00 07/22/18 08:00 07/22/18 08:00 07/22/18 08:00 Laboratory Results - last 24 hr 07/22/18 06:35: Sodium 143, Potassium 3.8, Chloride 106, Carbon Dioxide 34 H, Anion Gap 6.8, BUN 21 H, Creatinine 0.81, Estimated Creat Clear 86, Estimated GFR 90, Est GFR ( Amer) 109, Glucose 114 H, Calcium 8.9 I & O for Last 24 hours: Intake & Output 07/19/18 07/20/18 07/21/18 07/22/18 11:59 11:59 11:59 11:59 Intake Total 2284 / 2284 1090 / 1090 960 / 960 Output Total 1750 / 1750 2900 / 2900 675 / 675 Balance 534 / 534 -1810 / -1810 285 / 285 Weight 264 lb 6 oz 263 lb 6 oz - Constitutional no acute distress - *Routine Respiratory Exam Present: rales (bibasilar), wheezes - *Routine Cardiovascular Exam Present: RRR - *Routine Abdominal Exam Present: soft, normoactive bowel sounds. Absent: tenderness - *Routine Extremities Exam Present: edema (bilateral lower extremities with KATE wraps in place) - *Routine Skin Exam Present: warm. Absent: rash Assessment and Plan (1) Bilateral pneumonia Current visit: Yes Status: Acute Category: Medical Code(s): J18.9 - Pneumonia, unspecified organism (2) CHF (congestive heart failure) Current visit: Yes Status: Acute Category: Medical Code(s): I50.9 - Heart failure, unspecified (3) Ex-smoker for more than 1 year Current visit: Yes Status: Acute Category: Social Hx Code(s): Z87.891 - Personal history of nicotine dependence (4) History of CVA (cerebrovascular accident) Current visit: Yes Status: Acute Category: Medical Code(s): Z86.73 - Personal history of transient ischemic attack (TIA), and cerebral infarction without residual deficits (5) Atrial fibrillation Current visit: Yes Status: Acute Category: Medical Code(s): I48.91 - Unspecified atrial fibrillation (6) On Coumadin for atrial fibrillation Current visit: Yes Status: Acute Category: Medical Code(s): Z78.9 - Other specified health status (7) Diastolic dysfunction with acute on chronic heart failure Current visit: Yes Status: Acute Category: Medical Code(s): I50.33 - Acute on chronic diastolic (congestive) heart failure - Assessment and plan all Dx Assessment and Plan for all problems:: Will continue antibiotics. Patient symptoms are improving. Will discuss further care with Dr. rosa.
--- NOTE | 2018-07-22 08:43 | Progress Note ---
Internal Medicine - PN: Subj *Date: 07/22/18 *Time: 08:43 Exam Vital signs and Labs for Last 24 Hours: Temp Pulse Resp BP Pulse Ox 98.0 F 75 20 138/68 96 07/22/18 08:00 07/22/18 08:00 07/22/18 08:00 07/22/18 08:00 07/22/18 08:00 Laboratory Results - last 24 hr 07/22/18 06:35: Sodium 143, Potassium 3.8, Chloride 106, Carbon Dioxide 34 H, Anion Gap 6.8, BUN 21 H, Creatinine 0.81, Estimated Creat Clear 86, Estimated GFR 90, Est GFR ( Amer) 109, Glucose 114 H, Calcium 8.9 I & O for Last 24 hours: Intake & Output 07/19/18 07/20/18 07/21/18 07/22/18 23:59 23:59 23:59 23:59 Intake Total 2654 / 2654 840 / 840 480 / 480 Output Total 1999 1775 / 1775 Balance 654 / 654 -935 / -935 480 / 480 Weight 119.918 kg 119.465 kg Assessment and Plan (1) Bilateral pneumonia Current visit: Yes Status: Acute Category: Medical Code(s): J18.9 - Pneumonia, unspecified organism (2) CHF (congestive heart failure) Current visit: Yes Status: Acute Category: Medical Code(s): I50.9 - Heart failure, unspecified (3) Ex-smoker for more than 1 year Current visit: Yes Status: Acute Category: Social Hx Code(s): Z87.891 - Personal history of nicotine dependence (4) History of CVA (cerebrovascular accident) Current visit: Yes Status: Acute Category: Medical Code(s): Z86.73 - Personal history of transient ischemic attack (TIA), and cerebral infarction without residual deficits (5) Atrial fibrillation Current visit: Yes Status: Acute Category: Medical Code(s): I48.91 - Unspecified atrial fibrillation (6) On Coumadin for atrial fibrillation Current visit: Yes Status: Acute Category: Medical Code(s): Z78.9 - Other specified health status (7) Diastolic dysfunction with acute on chronic heart failure Current visit: Yes Status: Acute Category: Medical Code(s): I50.33 - Acute on chronic diastolic (congestive) heart failure The patient's infection will respond to the chosen ABx?: Yes Is the patient receiving the right drug, dose, and route?: Yes Could a more targeted ABx be ordered?: No (PATIENT AFEBRILE AND WBC NORMAL)
--- NOTE | 2018-07-22 09:28 | Progress Note ---
Subjective Date: 07/22/18 Time: 09:24 Principal diagnosis: CHF Interval history: This is an 88-year-old male who was admitted to the hospital with diastolic congestive heart failure. The patient has been being diuresed with IV Lasix. The patient does have a -900 fluid balance today. His weight is down approximately 5 pounds today. The patient states overall he feels better but he still has shortness of breath with exertion and is kind of winded when I am talking to him. He states that he just got back to bed from going to the bathroom. The patient reports still having a cough and he was able to get up a little bit of sputum overnight. He states that his his biggest complaint is his cough that just will not seem to go away. He denies any chest pain or pressure. He states that he still feels full in his abdomen and legs but this is better. The patient still is unable to lie flat. He denies any fever, chills, nausea, vomiting, diarrhea. Exam Vital signs and Labs for Last 24 Hours: Temp Pulse Resp BP Pulse Ox 98.0 F 75 20 138/68 96 07/22/18 08:00 07/22/18 08:00 07/22/18 08:00 07/22/18 08:00 07/22/18 08:00 Laboratory Results - last 24 hr 07/22/18 06:35: Sodium 143, Potassium 3.8, Chloride 106, Carbon Dioxide 34 H, Anion Gap 6.8, BUN 21 H, Creatinine 0.81, Estimated Creat Clear 86, Estimated GFR 90, Est GFR ( Amer) 109, Glucose 114 H, Calcium 8.9 I & O for Last 24 hours: Intake & Output 07/19/18 07/20/18 07/21/18 07/22/18 23:59 23:59 23:59 23:59 Intake Total 2654 / 2654 840 / 840 480 / 480 Output Total 1999 1775 / 1775 Balance 654 / 654 -935 / -935 480 / 480 Weight 264 lb 5.983 oz 263 lb 6 oz - *Routine HEENT Exam Head: Present: normocephalic, atraumatic Eye: Present: EOMI, PERRL ENT: Present: mucous membranes moist - *Routine Neck Exam Present: supple, full ROM. Absent: JVD, carotid bruit, lymphadenopathy - *Routine Respiratory Exam Present: decreased breath sounds, wheezes (Expiratory), crackles - *Routine Cardiovascular Exam Present: RRR, Normal S1, Normal S2, murmur. Absent: gallop - *Routine Abdominal Exam Present: soft, normoactive bowel sounds. Absent: tenderness - *Routine Extremities Exam Present: full ROM, pulses intact. Absent: cyanosis, clubbing, edema - *Routine Skin Exam Present: intact, warm. Absent: erythema, rash - *Routine Neurological Exam Present: alert, oriented X3, CN II-XII intact. Absent: sensory deficit, motor deficit - Detailed Eye Exam Eyelids: Left normal inspection Progress Note: A&P (1) Bilateral pneumonia Status: Acute Current Visit: Yes (2) CHF (congestive heart failure) Status: Acute Current Visit: Yes (3) Ex-smoker for more than 1 year Status: Acute Current Visit: Yes (4) History of CVA (cerebrovascular accident) Status: Acute Current Visit: Yes (5) Atrial fibrillation Status: Acute Current Visit: Yes (6) On Coumadin for atrial fibrillation Status: Acute Current Visit: Yes (7) Diastolic dysfunction with acute on chronic heart failure Status: Acute Current Visit: Yes Assessment and Plan for All Diagnoses:: Plan: 1. The patient was admitted with bilateral pneumonia and acute exacerbation of diastolic congestive heart failure. The patient's pneumonia is being treated with IV antibiotics per his primary care provider. Will defer. 2. The patient does have acute diastolic congestive heart failure. He has been diuresed with IV Lasix. The patient does have a -900 fluid balance for today and his weight is down 5 pounds from yesterday. However he is still having shortness of breath with exertion and he does some short of breath when speaking still. He does have some edema still noted in his lower extremities and he states that his abdomen still feels full. He is also still with a cough which is most likely from a combination of his pneumonia and his congestive heart failure. His creatinine remains normal and has not bumped any. We will increase his Lasix to 40 mg IV 3 times a day for continued diuresis. The patient likely still needs to get a little bit more fluid off given his shor tness of breath, cough and edema. 3. His blood pressure is acceptable. 4. His LDL goal is less than 100. 5. The patient has chronic atrial fibrillation. His A. fib is rate controlled. 6. He is on long-term anticoagulation with Coumadin. 7. Given his congestive heart failure he should be on a beta-flory and KATE inhibitor. The patient is currently on carvedilol. We will go ahead and get hi m started on low-dose lisinopril as well. 8. Further recommendations will be made pending the patient's response to treatment. Thank you for the opportunity to help participate in the care of this patient.
--- NOTE | 2018-07-23 08:40 | Progress Note ---
Internal Medicine - PN: Subj *Date: 07/23/18 *Time: 08:38 Interval history: Patient states he is tired this morning. He states he has not been able to sleep well since he has been in the hospital due to coughing. He feels slightly less short of breath today but is still wheezing. He denies any pain. He states he did eat some breakfast this morning. Exam Vital signs and Labs for Last 24 Hours: Temp Pulse Resp BP Pulse Ox 98.0 F 66 18 145/70 H 96 07/23/18 08:00 07/23/18 08:00 07/23/18 08:00 07/23/18 08:00 07/23/18 08:00 I & O for Last 24 hours: Intake & Output 07/20/18 07/21/18 07/22/18 07/23/18 11:59 11:59 11:59 11:59 Intake Total 2284 / 2284 1090 / 1090 960 / 960 1260 / 1260 Output Total 1750 / 1750 2900 / 2900 675 / 675 1675 / 1675 Balance 534 / 534 -1810 / -1810 285 / 285 -415 / -415 Weight 264 lb 6 oz 263 lb 6 oz Microbiology Reports for the Last 24 Hours: Microbiology 07/17/18 18:00 Blood Blood Culture - Final NO GROWTH AFTER 5 DAYS 07/17/18 18:00 Blood Blood Culture - Final NO GROWTH AFTER 5 DAYS - Constitutional no acute distress - *Routine Respiratory Exam Present: rhonchi, wheezes - *Routine Cardiovascular Exam Present: RRR - *Routine Abdominal Exam Present: soft, normoactive bowel sounds. Absent: tenderness - *Routine Extremities Exam Present: edema (bilateral LE's with KATE wraps in place) Assessment and Plan (1) Bilateral pneumonia Current visit: Yes Status: Acute Category: Medical Code(s): J18.9 - Pneumonia, unspecified organism (2) CHF (congestive heart failure) Current visit: Yes Status: Acute Category: Medical Code(s): I50.9 - Heart failure, unspecified (3) Ex-smoker for more than 1 year Current visit: Yes Status: Acute Category: Social Hx Code(s): Z87.891 - Personal history of nicotine dependence (4) History of CVA (cerebrovascular accident) Current visit: Yes Status: Acute Category: Medical Code(s): Z86.73 - Personal history of transient ischemic attack (TIA), and cerebral infarction without residual deficits (5) Atrial fibrillation Current visit: Yes Status: Acute Category: Medical Code(s): I48.91 - Unspecified atrial fibrillation (6) On Coumadin for atrial fibrillation Current visit: Yes Status: Acute Category: Medical Code(s): Z78.9 - Other specified health status (7) Diastolic dysfunction with acute on chronic heart failure Current visit: Yes Status: Acute Category: Medical Code(s): I50.33 - Acute on chronic diastolic (congestive) heart failure - Assessment and plan all Dx Assessment and Plan for all problems:: Cardiology note from yesterday reviewed. Will continue diuresis. We will also continue antibiotics for pneumonia.
--- NOTE | 2018-07-23 08:52 | Progress Note ---
Subjective Date: 07/23/18 Time: 08:48 Principal diagnosis: CHF Interval history: 88-year-old white male in chair initially sleeping but arouses easily. Still with cough but seems to be improved some. Denies chest pain at this time. Exam Vital signs and Labs for Last 24 Hours: Temp Pulse Resp BP Pulse Ox 98.0 F 66 18 145/70 H 96 07/23/18 08:00 07/23/18 08:00 07/23/18 08:00 07/23/18 08:00 07/23/18 08:00 I & O for Last 24 hours: Intake & Output 07/20/18 07/21/18 07/22/18 07/23/18 11:59 11:59 11:59 11:59 Intake Total 2284 / 2284 1090 / 1090 960 / 960 1260 / 1260 Output Total 1750 / 1750 2900 / 2900 675 / 675 1675 / 1675 Balance 534 / 534 -1810 / -1810 285 / 285 -415 / -415 Weight 264 lb 6 oz 263 lb 6 oz Microbiology Reports for the Last 24 Hours: Microbiology 07/17/18 18:00 Blood Blood Culture - Final NO GROWTH AFTER 5 DAYS 07/17/18 18:00 Blood Blood Culture - Final NO GROWTH AFTER 5 DAYS - *Routine Respiratory Exam Present: rales, rhonchi, wheezes, diminished air movement. Absent: accessory muscle use - *Routine Cardiovascular Exam Present: murmur. Absent: gallop, rubs - *Routine Extremities Exam Present: edema. Absent: calf tenderness - *Routine Neurological Exam Present: alert, moving all extremities Progress Note: A&P (1) Bilateral pneumonia Status: Acute Current Visit: Yes (2) CHF (congestive heart failure) Status: Acute Current Visit: Yes (3) Ex-smoker for more than 1 year Status: Acute Current Visit: Yes (4) History of CVA (cerebrovascular accident) Status: Acute Current Visit: Yes (5) Atrial fibrillation Status: Acute Current Visit: Yes (6) On Coumadin for atrial fibrillation Status: Acute Current Visit: Yes (7) Diastolic dysfunction with acute on chronic heart failure Status: Acute Current Visit: Yes Assessment and Plan for All Diagnoses:: 1. Continue carvedilol for blood pressure, CHF and rate control. 2. Continue lisinopril, aldactone and Lasix in setting of congestive heart failure due to diastolic dysfunction. 3. Patient continues on Coumadin for chronic atrial fibrillation with history of CVA. 4. Antibiotics per primary care physician for pneumonia.
[2018-07-23 10:05] LABS: INR 1.96 (0.9-1.1); Prothrombin Time 19.8 seconds (9.4-11.8)
--- NOTE | 2018-07-26 22:24 | Discharge Summary ---
General - General Admission date:: 07/17/18 Discharge date: 07/23/18 HPI HPI: This 88-year-old white male is a patient of the [facility]. He was brought to the emergency room at [facility] last evening with shortness of breath and congestion. He was evaluated in the emergency room and found to have some congestive heart failure and pneumonia. The [facility] could not accept him on transfer, thus he was admitted. He is a poor historian. I did find that he grew up on a farm in [facility]. He has been a smoker in the past. He is not able to tell me about previous hospitalizations or surgeries. There is no family member present at this time. Hospital Course Hospital Course: The patient was started on antibiotics as well as diuretics. His chest x-ray showed cardiomegaly with bilateral pneumonia, therefore an echo was ordered. It showed an EF of 50% with grade 3 diastolic dysfunction. There was a thickened and calcified aortic valve with moderate aortic stenosis. It also showed pulmonary hypertension. The patient showed significant weight gain over the first night in the hospital despite diuretic therapy. He was started on losartan 50 mg twice daily and additional diuretics were given. Cardiology was consulted. Cardiology saw the patient and recommended increasing his Coreg to 25 mg twice daily and discontinuing his hydralazine. They recommended adding Spironolactone to his diuretic therapy along with the Lasix. The patient did have a mildly elevated troponin, but they felt this was likely due to CHF and cardiac strain. They did feel that when the patient was able to lie flat without coughing, they would recommend further workup including a stress test or cardiac cath. They were also concerned about aspiration pneumonia with the smooth ent's difficulty swallowing and excessive cough. The patient's weight continued to remain about the same. Cardiology then recommended continued beta-flory due to severe diastolic dysfunction. They discontinued his Norvasc and added Isordil 20 mg 3 times daily to help with blood pressure and myocardial perfusion in the setting of grade 3 diastolic dysfunction with CHF. They recommended to continue cautious IV diuretic therapy in light of his aortic stenosis. His potassium was low, therefore it was replaced. The patient continued with lower extremity edema, therefore an Wojciech wrap was placed on his legs and diuresis was continued. He had a repeat chest x-ray showing mild CHF and improved bilateral pneumonia. He continued with a cough but did feel better. His weight finally began decreasing. His shortness of breath continued, therefore cardiology increased his Lasix to 40 mg IV 3 times daily. His respirations improved and his weight continue to decline. Cardiology felt he was stable for discharge and should continued on carvedilol, lisinopril, Aldactone, and Lasix. He will also need to remain on Coumadin for chronic atrial fibrillation. His sputum showed normal respiratory ra and his blood cultures showed no growth. The patient was stable to be discharged home with home health on continued antibiotics for his pneumonia. Objective Vital signs: Temp Pulse Resp BP Pulse Ox 98.9 F 68 16 136/71 88 L 07/23/18 11:36 07/23/18 16:48 07/23/18 11:36 07/23/18 11:36 07/23/18 16:48 Narrative: - Constitutional no acute distress Comments: He rambles in speech. He has difficulty hearing and is unable to respond cogently to my questions. - *Routine HEENT Exam Eye: Present: PERRL Comments: Edentulous with dental prosthetics. - *Routine Neck Exam Present: JVD - *Routine Respiratory Exam Comments: Moving air at the apices but decreased at the bases with rales. - *Routine Cardiovascular Exam Present: RRR (Heart sounds are distant.) - *Routine Abdominal Exam Present: soft. Absent: organomegaly, mass - *Routine Exam Scrotal: Absent: swelling, tenderness, mass Groin: Absent: inguinal hernia - *Routine Extremities Exam Present: edema (4+) - *Routine Skin Exam Present: intact, dry - *Routine Neurological Exam Present: alert (But has a hearing deficit and is not cogent in his responses.). Absent: motor deficit DS: Diagnosis - Discharge Diagnosis (1) Bilateral pneumonia Status: Acute (2) CHF (congestive heart failure) Status: Acute (3) Ex-smoker for more than 1 year Status: Acute (4) History of CVA (cerebrovascular accident) Status: Acute (5) Atrial fibrillation Status: Acute (6) On Coumadin for atrial fibrillation Status: Acute (7) Diastolic dysfunction with acute on chronic heart failure Status: Acute Discharge Plan - Patient Discharge Instructions ACTIVITY: Continue current activity DIET: continue same diet Patient Instructions: Pneumonia-Adult, Heart Failure, Pneumococcal Vaccine, DI for Heart Failure, DI for Pneumonia -- Adult, How to Quit Smoking, Warfarin, Coumadin Vitamin K/ Diet, Coumadin Therapy Booklet - Follow up Plan Follow up with: Enrrique Moody MD [Staff Physician] - Unknown provider or service follow up:: 07/23/18 09:37 His PCP. Call for appt. Disposition: Home Health Service Home Medications: Home Medications Medication Instructions Recorded Confirmed Type Carvedilol [Carvedilol 25mg Tab] 12.5 mg PO BID 03/19/18 07/17/18 History Finasteride [Proscar 5mg Tablet] 5 mg PO DAILY 03/19/18 07/17/18 History Omeprazole [Omeprazole 20mg Tab] 20 mg PO DAILY 03/19/18 07/17/18 History Salsalate 750 mg PO BID 03/19/18 07/17/18 History Warfarin Sodium [Coumadin 5mg 5 mg PO DAILY 03/19/18 07/17/18 History tablet] Cholecalciferol (Vitamin D3) 1,000 unit PO DAILY 03/20/18 07/17/18 History [Vitamin D3 1,000 Unit Cap] Fluticasone Propionate [Flonase 1 spr NS DAILY 03/20/18 07/17/18 History 50mcg nasal spray 16gm] Lisinopril [Lisinopril 40mg Tablet] 40 mg PO DAILY 03/20/18 07/17/18 History Cetirizine HCl 5 mg PO DAILY 07/17/18 07/17/18 History Hydralazine HCl 50 mg PO TID 07/17/18 07/17/18 History Alfuzosin HCl [Uroxatral] 10 mg PO DAILY 07/18/18 07/18/18 History Cefdinir [Omnicef 300mg Capsule] 300 mg PO BID #14 cap 07/23/18 Rx Furosemide [Lasix 40mg tablet] 40 mg PO TID #90 tablet 07/23/18 Rx Potassium Chloride [Klor-con 20 20 meq PO BID #60 tablet 07/23/18 Rx mEq tablet] Spironolactone [Aldactone 25mg 25 mg PO DAILY #30 tablet 07/23/18 Rx Tab] guaiFENesin [Mucinex 600mg tablet] 1,200 mg PO BID #60 tab.er.12h 07/23/18 Rx Prescriptions/Medication Reconciliation: New Cefdinir [Omnicef 300mg Capsule] 300 mg PO BID #14 cap guaiFENesin [Mucinex 600mg tablet] 1,200 mg PO BID #60 tab.er.12h Potassium Chloride [Klor-con 20 mEq tablet] 20 meq PO BID #60 tablet Spironolactone [Aldactone 25mg Tab] 25 mg PO DAILY #30 tablet Continue Carvedilol [Carvedilol 25mg Tab] 12.5 mg PO BID Omeprazole [Omeprazole 20mg Tab] 20 mg PO DAILY Salsalate 750 mg PO BID Finasteride [Proscar 5mg Tablet] 5 mg PO DAILY Fluticasone Propionate [Flonase 50mcg nasal spray 16gm] 1 spr NS DAILY Lisinopril [Lisinopril 40mg Tablet] 40 mg PO DAILY Hydralazine HCl 50 mg PO TID Cetirizine HCl 5 mg PO DAILY Alfuzosin HCl [Uroxatral] 10 mg PO DAILY Warfarin Sodium [Coumadin 5mg tablet] 5 mg PO DAILY Cholecalciferol (Vitamin D3) [Vitamin D3 1,000 Unit Cap] 1,000 unit PO DAILY Changed Furosemide [Lasix 40mg tablet] 40 mg PO TID #90 tablet
== END 2018-07-23 18:09 | disposition home health service (06) | DRG 291 ==
LOC: 2ND 18:00 → ER 18:00 → OBSVTOIN 21:47 → 2ND 21:48
PROVIDERS: ADMIT Family Medicine; ATTEND Family Medicine
CPT/HCPCS: 36415; 71010; 71020; 71045; 71046; 80048; 80053; 82550; 82553; 82803; 83605; 83880; 84484; 85007; 85025; 85610; 85730; 87040; 87070; 87205; 92610; 93005; 93306; 94640; 94761; 96366; 96374; 97116; 97161; 97530; 99284; J0456